=== PATIENT | male | born 1990 | race Caucasian/White ===

== ENCOUNTER 2018-03-27 14:23 | Inpatient (IN) | payer OTHER ==
[2018-03-27 16:18] VITALS: BMI 27.4
--- NOTE | 2018-03-27 19:01 | HP ---
COWS - Scale Resting Pulse: 0= [place] 80 or Below Sweatin= Chills/Flushing Restless Observation: 1= Difficult to Sit Still Pupil Size: 0= Normal to Room Light Bone or Joint Aches: 1= Mild Discomfort Runny Nose/ Eye Tearin= Runny Nose/Eyes GI Upset > 30mins: 3= Vomiting/Diarrhea Tremor Observation: 1= Tremor [place], Not Seen Yawning Observation: 2= >3x During Session Anxiety or Irritability: 2=Irritable/Anxious Goose Flesh Skin: 3=Piloerection COWS Score: 16 CIWA Score - CIWA Score Nausea/Vomitin-Int. Nausea w/Dry Heave Muscle Tremors: 2 Anxiety: 3 Agitation: 2 Paroxysmal Sweats: 2 Orientation: 0-Oriented Tacttile Disturbances: 1-Very Mild Itch/Numbness Auditory Disturbances: 0-None Visual Disturbances: 1-Very Mild Sensitivity Headache: 2-Mild CIWA-Ar Total Score: 17 Admission ROS [facility] - HPI Chief Complaint: alcohol, opioid, xanax withdrawal symptoms Allergies/Adverse Reactions: Allergies Allergy/AdvReac Type Severity Reaction Status Date / Time No Known Allergies Allergy Verified 03/27/18 16:39 History of Present Illness: 27 yo male with hx of nicotine, IV heroin , xanax, and alcohol dependence is here seeking detox. OD x 3 in last ten days. Last detox January 2016 at [facility]. Hx of bipolar and anxiety. Denies hx of seizures. Denies suicidal / homicidal ideation or hx of suicide attempts. Reports psych admission Sep 2014 for suicidal ideation. Longest period of sobriety. Exam Limitations: No Limitations - Ebola screening Have you traveled outside of the country in the last 21 days: No Have you had contact with anyone from an Ebola affected area: No Have you been sick,other than usual withdrawal symptoms: No Do you have a fever: No - Review of Systems Constitutional: Chills, Diaphoresis, Loss of Appetite, Changes in sleep, Unintentional Wgt. Loss EENT: reports: No Symptoms Reported Respiratory: reports: No Symptoms reported Cardiac: reports: Lightheadedness GI: reports: Nausea, Poor Appetite, Vomiting : reports: No Symptoms Reported Musculoskeletal: reports: Back Pain, Joint Pain Integumentary: reports: No Symptoms Reported Neuro: reports: Headache, Dizziness Endocrine: reports: Excessive Sweating, Increased Thirst Hematology: reports: No Symptoms Reported Psychiatric: reports: Orientated x3, Anxious, Depressed (father dx of wih endstage cancer) Other Systems: Reviewed and Negative Patient History - Patient Medical History Hx Anemia: No Hx Asthma: Yes (Pt is on MDI) Hx Chronic Obstructive Pulmonary Disease (COPD): No Hx Cancer: No Hx Cardiac Disorders: No Hx Congestive Heart Failure: No Hx Hypertension: Yes (not on meds at present.) Hx Hypercholesterolemia: No Hx Pacemaker: No HX Cerebrovascular Accident: No Hx Seizures: No Hx Dementia: No Hx Diabetes: No Hx Gastrointestinal Disorders: No Hx Liver Disease: No Hx Genitourinary Disorders: No Hx Sexually Transmitted Disorders: No Hx Renal Disease (ESRD): No Hx Thyroid Disease: No Hx Human Immunodeficiency Virus (HIV): No Hx Hepatitis C: No Hx Depression: Yes Hx Suicide Attempt: No Hx Bipolar Disorder: Yes (zyprexa, seroquel and trazodone ) Hx Schizophrenia: No - Patient Surgical History Past Surgical History: No Hx Neurologic Surgery: No Hx Cataract Extraction: No Hx Cardiac Surgery: No Hx Lung Surgery: No Hx Breast Surgery: No Hx Breast Biopsy: No Hx Abdominal Surgery: No Hx Appendectomy: No Hx Cholecystectomy: No Hx Genitourinary Surgery: No Hx Section: No Hx Orthopedic Surgery: No Anesthesia Reaction: No - PPD History Previous Implant?: Yes Documented Results: Negative w/proof Date: 04/30/15 Results: 0MM PPD to be Administered?: Yes - Smoking Cessation Smoking history: Current every day smoker Have you smoked in the past 12 months: Yes Aproximately how many cigarettes per day: 10 Hx Chewing Tobacco Use: No Initiated information on smoking cessation: Yes 'Breaking Loose' booklet given: 03/27/18 - Substance & Tx. History Hx Alcohol Use: Yes Hx Substance Use: Yes Substance Use Type: Alcohol, Heroin, Tranquilizers - Substances Abused Alcohol Route: Oral Frequency: Daily Amount used: BEER- 1 SIX PACK Age of first use: 17 Date of Last Use: 03/26/18 Heroin Route: Inhalation Frequency: Daily Amount used: 10 BAGS Age of first use: 17 Date of Last Use: 03/26/18 Alprazolam (Xanax) Route: Oral Frequency: Daily Amount used: 5-10mg Age of first use: 17 Date of Last Use: 03/27/18 Family Disease History - Family Disease History Family Disease History: [place]: Father (alive, prostate ), Other: Mother (alive and well) Admission Physical Exam [facility] - Vital Signs Vital Signs: Vital Signs - 24 hr 03/27/18 16:15 Temperature 97.8 F Pulse Rate 66 Respiratory 16 Rate Blood Pressure 128/68 - Physical General Appearance: Yes: Disheveled, Moderate Distress, Sweating, Anxious HEENTM: Yes: EOMI, Hearing grossly Normal, Normal ENT Inspection, Normocephalic , Normal Voice, CATIE, Pharynx Normal, Tm's normal Respiratory: Yes: Chest Non-Tender, Lungs Clear, Normal Breath Sounds, No Respiratory Distress, No Accessory Muscle Use Neck: Yes: Within Normal Limits Breast: Yes: Breast Exam Deferred Cardiology: Yes: Regular Rhythm, Regular Rate Abdominal: Yes: Normal Bowel Sounds, Non Tender, Flat Genitourinary: Yes: Within Normal Limits Back: Yes: Normal Inspection Musculoskeletal: Yes: full range of Motion, Gait Steady, Pelvis Stable, Back pain Neurological: Yes: dray driver II-XII NML intact, Fully Oriented, Alert, Motor Strength 5/5, Normal Response, Depressed Affect Integumentary: Yes: Normal Color, Warm, Diaphoresis, Track Maria (right forearm , diffrent healing stages, no infection) Lymphatic: Yes: Within Normal Limits - Diagnostic (1) Psychiatric disorder Current Visit: Yes Status: Acute (2) Alcohol dependence with uncomplicated withdrawal Current Visit: Yes Status: Chronic (3) Asthma Current Visit: Yes Status: Chronic Qualifiers: Asthma severity: mild Asthma persistence: intermittent Asthma complication type: uncomplicated Qualified Code(s): J45.20 - Mild intermittent asthma, uncomplicated (4) Cocaine dependence Current Visit: Yes Status: Chronic Qualifiers: Substance use status: uncomplicated Qualified Code(s): F14.20 - Cocaine dependence, uncomplicated (5) Opioid dependence with withdrawal Current Visit: Yes Status: Chronic (6) Uncomplicated sedative, hypnotic or anxiolytic withdrawal Current Visit: Yes Status: Chronic Cleared for Admission [facility] - Detox or Rehab [facility] Level of Care: Medically Managed Detox Regimen/Protocol: Methadone/Valium [facility] Breath Alcohol Content Breath Alcohol Content: 0 Urine Drug Screen - Results Drug Screen Negative: No Urine Drug Screen Results: OPI-Opiates, BZO-Benzodiazepines
[2018-03-27] MEDS ORDERED: MAGNESIUM HYDROX 2400MG/30ML ORAL SUSPENSION 30 ML CUP PO PRN (19:04)
[2018-03-27] MEDS ORDERED: ACETAMINOPHEN 325 MG TABLET (FP) PO PRN (19:04)
[2018-03-27] MEDS ORDERED: guaiFENesin/D-METHORPHAN HB 10 ML UNIT-DOSE CUPS PO PRN (19:04)
[2018-03-27] MEDS ORDERED: MENTHOL/PHENOL 1 EACH UD MM PRN (19:04)
[2018-03-27] MEDS ORDERED: MAGNESIUM CITRATE 300 ML BOTTLE PO PRN (19:04)
[2018-03-27] MEDS ORDERED: NICOTINE POLACRILEX 2 MG GUM BC PRN (19:04)
[2018-03-27] MEDS ORDERED: MAG HYDROX/AL HYDROX/SIMETH 30 ML UNIT-DOSE CUP PO PRN (19:04)
[2018-03-27] MEDS ORDERED: hydrOXYzine PAMOATE 50 MG CAPSULE (FP) PO PRN (19:04)
[2018-03-27] MEDS ORDERED: IBUPROFEN 400 MG TABLET (FP) PO PRN (19:04)
[2018-03-27] MEDS ORDERED: P-EPHED 60MG/TRIPROLIDI 2.5MG TABLET PO PRN (19:04)
[2018-03-27] MEDS ORDERED: LOPERAMIDE HCL 2 MG CAPSULE PO PRN (19:04)
[2018-03-27] MEDS ORDERED: diazePAM 5 MG TABLET PO ONE (19:30)
[2018-03-27] MEDS ORDERED: METHADONE HCL 10 MG TABLET (FOR DETOX USE ONLY) PO ONE ×2 (19:30→23:00)
[2018-03-27] MEDS ORDERED: MELATONIN 5 MG TABLETS PO PRN (22:00)
[2018-03-27] MEDS: THIAMINE HCL 100 MG TABLET (FP) PO SCH (22:36)
[2018-03-27] MEDS: diazePAM 5 MG TABLET PO SCH (23:05)
[2018-03-27 23:54] LABS: URINE APPEARANCE SLCLOUDY; URINE BILIRUBIN NEGATIVE (<2.0 mg/dL); URINE COLOR DKYELLOW; URINE GLUCOSE (UA) NEGATIVE (NEGATIVE); URINE KETONE NEGATIVE (NEGATIVE); URINE LEUK ESTERASE NEGATIVE (NEGATIVE); URINE NITRITE NEGATIVE (NEGATIVE); URINE PROTEIN NEGATIVE (NEGATIVE); URINE UROBILINOGEN NEGATIVE mg/dL (0.2-1.0)
[2018-03-28] MEDS: diazePAM 5 MG TABLET PO SCH ×3 (06:35→22:16)
[2018-03-28 09:57] LABS: HEMATOCRIT 44.5 % (35.4-49); HEMOGLOBIN 14.6 GM/dL (11.7-16.9); MCH 26.4 pg (25.7-33.7); MCHC 32.8 g/dl (32.0-35.9); MEAN CELL VOLUME 80.5 fl (80-96); MEAN PLT VOLUME 9.6 fl (7.5-11.1); PLATELET COUNT 235 K/MM3 (134-434); RBC 5.52 M/mm3 (4.00-5.60); RDW 13.5 % (11.9-15.9); WHITE BLOOD COUNT 5.4 K/mm3 (4.0-10.0)
[2018-03-28] MEDS ORDERED: METHADONE HCL 10 MG TABLET (FOR DETOX USE ONLY) PO SCH (10:00)
[2018-03-28 10:08] LABS: CHLORIDE 105 mmol/L (98-107); POTASSIUM 5.1 mmol/L (3.5-5.1); SODIUM 142 mmol/L (136-145)
[2018-03-28 10:21] LABS: ALBUMIN 3.4 g/dl (3.4-5.0); ALK PHOS 54 U/L (45-117); ANION GAP 8 (8-16); BILIRUBIN,TOTAL 0.4 mg/dL (0.2-1.0); BLOOD UREA NITROGEN 8 mg/dL (7-18); CALCIUM 8.7 mg/dL (8.5-10.1); CO2 29 mmol/L (21-32); CREATININE 1.1 mg/dL (0.7-1.3); GLUCOSE,RANDOM 104 mg/dL (74-106); SGOT/AST 18 U/L (15-37); SGPT/ALT 27 U/L (12-78); TOT PROT 6.3 g/dl (6.4-8.2)
[2018-03-28] MEDS: PRENATAL VITAMINS W/ FOLIC ACID TABLET (FP) PO SCH (10:36)
[2018-03-28] MEDS: NICOTINE 14 MG/24 HOURS TOPICAL PATCH TD SCH (10:36)
[2018-03-28] MEDS: diazePAM 5 MG TABLET PO PRN ×2 (10:38→15:47)
--- NOTE | 2018-03-28 11:31 | PN ---
S CIWA - CIWA Score Nausea/Vomitin-No Nausea/No Vomiting Muscle Tremors: 4-Moderate,w/Arms Extend Anxiety: 4-Mod. Anxious/Guarded Agitation: 4-Moderately Restless Paroxysmal Sweats: 1-Minimal Palms Moist Orientation: 0-Oriented Tacttile Disturbances: 0-None Auditory Disturbances: 0-None Visual Disturbances: 0-None Headache: 0-None Present CIWA-Ar Total Score: 13 S COWS - Scale Resting Pulse: 0= [place] 80 or Below Sweatin= Chills/Flushing Restless Observation: 3= Extraneous Movement Pupil Size: 2= Moderately Dilated Bone or Joint Aches: 1= Mild Discomfort Runny Nose/ Eye Tearin= None GI Upset > 30mins: 0= None Tremor Observation of Outstretched Hands: 2= Slight Tremor Visible Yawning Observation: 1= 1-2x During Session Anxiety or Irritability: 2=Irritable/Anxious Goose Flesh Skin: 0=Smooth Skin COWS Score: 12 S Progress Note (SOAP) Subjective: ANXIETY,SWEATS/CHILLS,DECREASED APPETITE,FATIGUE. Objective: 03/28/18 11:36 Vital Signs 03/28/18 03/28/18 06:15 09:10 Temperature 97.4 F L 97.5 F L Pulse Rate 60 52 L Respiratory 16 18 Rate Blood Pressure 91/60 102/56 Laboratory Tests 03/27/18 03/28/18 03/28/18 10:53 07:00 07:00 WBC 5.4 RBC 5.52 Hgb 14.6 Hct 44.5 D MCV 80.5 MCH 26.4 MCHC 32.8 RDW 13.5 Plt Count 235 MPV 9.6 D Sodium Potassium Chloride Carbon Dioxide Anion Gap BUN Creatinine Creat Clearance w eGFR Random Glucose Calcium Total Bilirubin AST ALT Alkaline Phosphatase Total Protein Albumin Urine Color Dkyellow Urine Appearance Slcloudy Urine pH 5.0 Ur Specific [place] 1.024 Urine Protein Negative Urine Glucose (UA) Negative Urine Ketones Negative Urine Blood Negative Urine Nitrite Negative Urine Bilirubin Negative Urine Urobilinogen Negative Ur Leukocyte Esterase Negative RPR Titer HIV 1&2 Antibody Screen Negative HIV P24 Antigen Negative 03/28/18 03/28/18 07:00 07:00 WBC RBC Hgb Hct MCV MCH MCHC RDW Plt Count MPV Sodium 142 Potassium 5.1 D Chloride 105 Carbon Dioxide 29 Anion Gap 8 BUN 8 Creatinine 1.1 Creat Clearance w eGFR > 60 Random Glucose 104 Calcium 8.7 Total Bilirubin 0.4 AST 18 D ALT 27 Alkaline Phosphatase 54 Total Protein 6.3 L Albumin 3.4 Urine Color Urine Appearance Urine pH Ur Specific [place] Urine Protein Urine Glucose (UA) Urine Ketones Urine Blood Urine Nitrite Urine Bilirubin Urine Urobilinogen Ur Leukocyte Esterase RPR Titer Nonreactive HIV 1&2 Antibody Screen HIV P24 Antigen Assessment: 03/28/18 11:36 WITHDRAWAL SX Plan: CONTINUE DETOX INCREASE PO FLUIDS
[2018-03-28] MEDS ORDERED: ALBUTEROL SO4 8 GM HFA INHALER IH ONE (16:30)
[2018-03-28] MEDS ORDERED: ALBUTEROL SO4 8 GM HFA INHALER IH PRN (16:37)
--- NOTE | 2018-03-28 16:41 | PN ---
[facility] Progress Note Note: Received call from nurse to state patient states he has asthma and usually takes an inhaler when needed. Patient denies SOB or wheezing at this time. Vital Signs - 24 hr 03/27/18 03/28/18 03/28/18 21:31 00:30 03:30 Temperature 99.1 F Pulse Rate 67 Respiratory 18 18 18 Rate Blood Pressure 119/69 03/28/18 03/28/18 03/28/18 06:15 09:10 13:16 Temperature 97.4 F L 97.5 F L 98.3 F Pulse Rate 60 52 L 55 L Respiratory 16 18 18 Rate Blood Pressure 91/60 102/56 125/66 Will order albuterol MDI prn for wheeze or SOB/
--- NOTE | 2018-03-28 17:35 | CONSULT ---
[facility] Psychiatric Consult - Data Date of interview: 03/28/18 Admission source: [facility] Identifying data: Readmission to [facility] for this 27 y/o male from [place] ancestry seeking detox treatment on for heroin,alcohol and xanax dependence.Patient is single without dependents,domiciled and reportedly employed. Substance Abuse History: Confirmed by patient in this session.Smoking history: Current every day smoker. Have you smoked in the past 12 months: Yes. Aproximately how many cigarettes per day: 10. Hx Chewing Tobacco Use: No. Initiated information on smoking cessation: Yes. 'Breaking Loose' booklet given : 03/27/18. - Substance & Tx. History. Hx Alcohol Use: Yes. Hx Substance Use : Yes. Substance Use Type: Alcohol, Heroin, Tranquilizers. - Substances Abused. Alcohol. Route: Oral. Frequency: Daily. Amount used: BEER- 1 SIX PACK. Age of first use: 17. Date of Last Use: 03/26/18. Heroin. Route: Inhalation. Frequency: Daily. Amount used: 10 BAGS. Age of first use: 17. Date of Last Use: 03/26/18. Alprazolam (Xanax). Route: Oral. Frequency: Daily. Amount used: 5-10mg. Age of first use: 17. Date of Last Use: 03/27/18 Medical History: Hypertension and bronchial asthma. Psychiatric History: Patient endorses a history of two psychiatric hospitalization ([facility] + [facility]) in 2013 and 2014.Reportedly diagnosed with Bipolar Disorder.Patient states that he sees a psychiatrist in the community (program unnamed) for medication management.Prescribed wellbutrin XL 300 mg/day + seroquel + trazodone (doses not recalled).Last taken three days ago, as per self -report.History of one suicide attempt via overdose with drugs/medications in 2014. Physical/Sexual Abuse/Trauma History: Patient denies. Additional Comment: Urine Drug Screen Results: OPI-Opiates, BZO- Benzodiazepines.Noted. Mental Status Exam - Mental Status Exam Alert and Oriented to: Time, Place, Person Cognitive Function: Good Patient Appearance: Well Groomed Mood: Nervous, Withdrawn, Irritable Affect: Mood Congruent Patient Behavior: Passive, Fatigued, Cooperative (superficially cooperative) Voice Loudness: Normal Thought Process: Goal Oriented Thought Disorder: Not Present Hallucinations: Denies Suicidal Ideation: Denies Homicidal Ideation: Denies Insight/Judgement: Poor Sleep: Poorly, Difficulty falling asleep Appetite: Good Muscle strength/Tone: Normal Gait/Station: Normal Psychiatric Findings - Problem List ([place] 1, 2,3) (1) Opioid dependence with withdrawal Current Visit: Yes Status: Acute (2) Alcohol dependence with uncomplicated withdrawal Current Visit: Yes Status: Acute (3) Uncomplicated sedative, hypnotic or anxiolytic withdrawal Current Visit: Yes Status: Acute (4) Nicotine dependence Current Visit: Yes Status: Acute Qualifiers: Nicotine product type: cigarettes Substance use status: in withdrawal Qualified Code(s): F17.213 - Nicotine dependence, cigarettes, with withdrawal (5) Substance induced mood disorder Current Visit: Yes Status: Acute (6) Bipolar disorder Current Visit: Yes Status: Acute Comment: As per self-report. (7) Insomnia Current Visit: Yes Status: Acute - Initial Treatment Plan Initial Treatment Plan: Psychoeducation.Detoxification.Sleep hygiene.Medications : seroquel 100 mg po hs + wellbutrin XL 300 mg po daily ( patient's specific request).Side effects/benefits of both drugs are discussed with the patient.Consent (verbal) given.Observation.
[2018-03-28] MEDS: THIAMINE HCL 100 MG TABLET (FP) PO SCH (22:16)
[2018-03-28] MEDS: QUEtiapine FUMARATE 100 MG TABLET (FP) PO SCH (22:16)
[2018-03-29] MEDS: diazePAM 5 MG TABLET PO SCH ×2 (10:22→22:16)
[2018-03-29] MEDS: PRENATAL VITAMINS W/ FOLIC ACID TABLET (FP) PO SCH (10:22)
[2018-03-29] MEDS: METHADONE HCL 5 MG TABLET (FOR DETOX USE ONLY) PO SCH (10:23)
[2018-03-29] MEDS: NICOTINE 14 MG/24 HOURS TOPICAL PATCH TD SCH (10:24)
[2018-03-29] MEDS: diazePAM 5 MG TABLET PO PRN (16:40)
--- NOTE | 2018-03-29 16:47 | PN ---
[facility] CIWA - CIWA Score Nausea/Vomitin-No Nausea/No Vomiting Muscle Tremors: None Anxiety: 4-Mod. Anxious/Guarded Agitation: 4-Moderately Restless Paroxysmal Sweats: 3 Orientation: 0-Oriented Tacttile Disturbances: 1-Very Mild Itch/Numbness Auditory Disturbances: 0-None Visual Disturbances: 0-None Headache: 0-None Present CIWA-Ar Total Score: 12 S COWS - Scale Resting Pulse: 1= [place] 81-100 Sweatin= Chills/Flushing Restless Observation: 1= Difficult to Sit Still Pupil Size: 0= Normal to Room Light Bone or Joint Aches: 0= None Runny Nose/ Eye Tearin= Nasal Congestion GI Upset > 30mins: 0= None Tremor Observation of Outstretched Hands: 0= None Yawning Observation: 1= 1-2x During Session Anxiety or Irritability: 2=Irritable/Anxious Goose Flesh Skin: 3=Piloerection COWS Score: 10 S Progress Note (SOAP) Subjective: Sweating, Anxious. Objective: PATIENT A & O X 3, OBSERVED AMBULATING ON UNIT. NO ACUTE DISTRESS. 03/29/18 16:46 Vital Signs Temperature 97.2 F L 03/29/18 13:20 Pulse Rate 82 03/29/18 13:20 Respiratory Rate 16 03/29/18 13:20 Blood Pressure 126/78 03/29/18 13:20 O2 Sat by Pulse Oximetry (%) Laboratory Tests 03/27/18 03/28/18 03/28/18 10:53 07:00 07:00 WBC 5.4 RBC 5.52 Hgb 14.6 Hct 44.5 D MCV 80.5 MCH 26.4 MCHC 32.8 RDW 13.5 Plt Count 235 MPV 9.6 D Sodium Potassium Chloride Carbon Dioxide Anion Gap BUN Creatinine Creat Clearance w eGFR Random Glucose Calcium Total Bilirubin AST ALT Alkaline Phosphatase Total Protein Albumin Urine Color Dkyellow Urine Appearance Slcloudy Urine pH 5.0 Ur Specific [place] 1.024 Urine Protein Negative Urine Glucose (UA) Negative Urine Ketones Negative Urine Blood Negative Urine Nitrite Negative Urine Bilirubin Negative Urine Urobilinogen Negative Ur Leukocyte Esterase Negative RPR Titer HIV 1&2 Antibody Screen Negative HIV P24 Antigen Negative 03/28/18 03/28/18 07:00 07:00 WBC RBC Hgb Hct MCV MCH MCHC RDW Plt Count MPV Sodium 142 Potassium 5.1 D Chloride 105 Carbon Dioxide 29 Anion Gap 8 BUN 8 Creatinine 1.1 Creat Clearance w eGFR > 60 Random Glucose 104 Calcium 8.7 Total Bilirubin 0.4 AST 18 D ALT 27 Alkaline Phosphatase 54 Total Protein 6.3 L Albumin 3.4 Urine Color Urine Appearance Urine pH Ur Specific [place] Urine Protein Urine Glucose (UA) Urine Ketones Urine Blood Urine Nitrite Urine Bilirubin Urine Urobilinogen Ur Leukocyte Esterase RPR Titer Nonreactive HIV 1&2 Antibody Screen HIV P24 Antigen LABS NOTED. Assessment: 03/29/18 16:47 WITHDRAWAL SYMPTOMS. Plan: CONTINUE DETOX.
[2018-03-29] MEDS: QUEtiapine FUMARATE 100 MG TABLET (FP) PO SCH (22:16)
[2018-03-29] MEDS: THIAMINE HCL 100 MG TABLET (FP) PO SCH (22:16)
[2018-03-30 06:17] VITALS: BP 101/51; PULSE 50; TEMP 98.2
[2018-03-30] MEDS: diazePAM 5 MG TABLET PO PRN (06:20)
[2018-03-30] MEDS: METHADONE HCL 5 MG TABLET (FOR DETOX USE ONLY) PO SCH (11:34)
[2018-03-30] MEDS: NICOTINE 14 MG/24 HOURS TOPICAL PATCH TD SCH (11:35)
[2018-03-30] MEDS: diazePAM 5 MG TABLET PO SCH (11:35)
[2018-03-30] MEDS: PRENATAL VITAMINS W/ FOLIC ACID TABLET (FP) PO SCH (11:35)
--- NOTE | 2018-03-30 13:23 | PN ---
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 Objective: 03/30/18 13:19 Vital Signs - 24 hr 03/29/18 03/29/18 03/29/18 13:20 18:06 22:11 Temperature 97.2 F L 96.4 F L 97.7 F Pulse Rate 82 81 62 Respiratory 16 19 16 Rate Blood Pressure 126/78 105/64 122/75 03/30/18 03/30/18 03/30/18 00:30 03:30 06:16 Temperature 98.2 F Pulse Rate 50 L Respiratory 18 18 18 Rate Blood Pressure 101/51 Laboratory Tests 03/27/18 03/28/18 03/28/18 10:53 07:00 07:00 WBC 5.4 RBC 5.52 Hgb 14.6 Hct 44.5 D MCV 80.5 MCH 26.4 MCHC 32.8 RDW 13.5 Plt Count 235 MPV 9.6 D Sodium Potassium Chloride Carbon Dioxide Anion Gap BUN Creatinine Creat Clearance w eGFR Random Glucose Calcium Total Bilirubin AST ALT Alkaline Phosphatase Total Protein Albumin Urine Color Dkyellow Urine Appearance Slcloudy Urine pH 5.0 Ur Specific [place] 1.024 Urine Protein Negative Urine Glucose (UA) Negative Urine Ketones Negative Urine Blood Negative Urine Nitrite Negative Urine Bilirubin Negative Urine Urobilinogen Negative Ur Leukocyte Esterase Negative RPR Titer HIV 1&2 Antibody Screen Negative HIV P24 Antigen Negative 03/28/18 03/28/18 07:00 07:00 WBC RBC Hgb Hct MCV MCH MCHC RDW Plt Count MPV Sodium 142 Potassium 5.1 D Chloride 105 Carbon Dioxide 29 Anion Gap 8 BUN 8 Creatinine 1.1 Creat Clearance w eGFR > 60 Random Glucose 104 Calcium 8.7 Total Bilirubin 0.4 AST 18 D ALT 27 Alkaline Phosphatase 54 Total Protein 6.3 L Albumin 3.4 Urine Color Urine Appearance Urine pH Ur Specific [place] Urine Protein Urine Glucose (UA) Urine Ketones Urine Blood Urine Nitrite Urine Bilirubin Urine Urobilinogen Ur Leukocyte Esterase RPR Titer Nonreactive HIV 1&2 Antibody Screen HIV P24 Antigen VS stable labs WNL pt amublatory Assessment: 03/30/18 13:20 pt stable- did not complete detox- feeling fine today, pt states not in withdrawal Plan: d/c today
--- NOTE | 2018-03-30 13:51 | DS ---
[facility] Detox Discharge Summary Admission Date: 03/27/18 Discharge Date: 03/30/18 - History Present History: Alcohol Dependence, Opioid Dependence, Sedative Dependence - Physical Exam Results Vital Signs: Vital Signs Temperature 98.2 F 03/30/18 06:16 Pulse Rate 50 L 03/30/18 06:16 Respiratory Rate 18 03/30/18 06:16 Blood Pressure 101/51 03/30/18 06:16 O2 Sat by Pulse Oximetry (%) Pertinent Admission Physical Exam Findings: 27 yo male with hx of nicotine, IV heroin , xanax, and alcohol dependence is here seeking detox. OD x 3 in last ten days. Last detox January 2016 at [facility]. Hx of bipolar and anxiety better after detox. - Treatment Hospital Course: Detox Protocol Followed, Detoxed Safely, Responded well - Medication Discharge Medications: Ambulatory Orders Quetiapine Fumarate [Seroquel] 200 mg PO DAILY #30 tablet 06/09/15 traZODone HCL [Desyrel -] 200 mg PO HS #30 tablet 06/09/15 Bupropion HCl [Wellbutrin Xl] 300 mg PO DAILY 03/27/18 Escitalopram Oxalate [Lexapro -] 20 mg PO DAILY 03/27/18 - AMA Did Patient Leave Against Medical Advice: Yes
[2018-03-31] MEDS ORDERED: METHADONE HCL 10 MG TABLET (FOR DETOX USE ONLY) PO SCH (10:00)
[2018-03-31] MEDS ORDERED: diazePAM 5 MG TABLET PO SCH (10:00)
--- NOTE | 2018-03-31 11:11 | EKG ---
Test Reason : Blood Pressure : / mmHG Vent. Rate : 049 BPM Atrial Rate : 049 BPM P-R Int : 170 ms QRS Dur : 098 ms QT Int : 416 ms P-R-T Axes : 041 065 010 degrees QTc Int : 375 ms SINUS BRADYCARDIA WITH SINUS ARRHYTHMIA VOLTAGE CRITERIA FOR LEFT VENTRICULAR HYPERTROPHY ABNORMAL ECG WHEN COMPARED WITH ECG OF 27-APR-2015 20:49, NO SIGNIFICANT CHANGE WAS FOUND Confirmed by IVONNE HITCHCOCK MD ([id number]) on 03/31/2018 11:11:30 AM Referred By: Confirmed By:IVONNE HITCHCOCK MD
[2018-04-01] MEDS ORDERED: METHADONE HCL 5 MG TABLET (FOR DETOX USE ONLY) PO SCH (06:00)
== END 2018-03-30 09:05 | disposition left against medical advice (07) | DRG 770 ==
LOC: YASAS 14:23 → Y3N 17:12
PROVIDERS: ADMIT Surgery; ATTEND Surgery
PROC: HZ2ZZZZ Detoxification Services for Substance Abuse Treatment (ICD-10-PCS; principal; 2018-03-27)
DX: F11.23 Opioid dependence with withdrawal (principal); F13.230 Sedative, hypnotic or anxiolytic dependence with withdrawal, uncomplicated; F10.230 Alcohol dependence with withdrawal, uncomplicated; F17.213 Nicotine dependence, cigarettes, with withdrawal; F19.24 Other psychoactive substance dependence with psychoactive substance-induced mood disorder; F31.9 Bipolar disorder, unspecified; F99 Mental disorder, not otherwise specified; G47.00 Insomnia, unspecified; I10 Essential (primary) hypertension; J45.909 Unspecified asthma, uncomplicated; Z91.5 Personal history of self-harm
CPT/HCPCS: 36415; 80053; 81003; 85027; 86593; 87389; 93005; 93010

== ENCOUNTER 2019-01-30 14:06 | Inpatient (IN) | payer OTHER ==
[2019-01-30 15:08] VITALS: BMI 25.5
--- NOTE | 2019-01-30 17:47 | HP ---
"COWS - Scale Resting Pulse: 0= [place] 80 or Below Sweatin=Flushed/Facial Moisture Restless Observation: 3= Extraneous Movement Pupil Size: 2= Moderately Dilated (Pupils = 5 mm) Bone or Joint Aches: 1= Mild Discomfort Runny Nose/ Eye Tearin= Nasal Congestion GI Upset > 30mins: 2= Nausea/Diarrhea Tremor Observation: 4= Gross Tremor/Twitching Yawning Observation: 0= None Anxiety or Irritability: 2=Irritable/Anxious Goose Flesh Skin: 0=Smooth Skin COWS Score: 17 CIWA Score Nausea/Vomitin-No Nausea/No Vomiting Muscle Tremors: 4-Moderate,w/Arms Extend Anxiety: 2 Agitation: 4-Moderately Restless Paroxysmal Sweats: 3 (Increased facial moisture) Orientation: 0-Oriented Tacttile Disturbances: 0-None Auditory Disturbances: 0-None Visual Disturbances: 0-None Headache: 2-Mild CIWA-Ar Total Score: 15 - Admission Criteria OAS Guidelines: Admission for Medically Managed Detox: Requires at least one of the followin. CIWA greater than 12 2. Seizures within the past 24 hours 3. Delirium tremens within the past 24 hours 4. Hallucinations within the past 24 hours 5. Acute intervention needed for co occurring medical disorder 6. Acute intervention needed for co occurring psychiatric disorder 7. Severe withdrawal that cannot be handled at a lower level of care (continued vomiting, continued diarrhea, abnormal vital signs) requiring intravenous medication and/or fluids 8. Patient presents the following: CIWA greater than 12 Admission Criteria Met: Admission criteria met Admission ROS [facility] Chief Complaint: I'm withdrawing from Alcohol, Heroin and benzos Allergies/Adverse Reactions: Allergies Allergy/AdvReac Type Severity Reaction Status Date / Time No Known Allergies Allergy Verified 01/30/19 14:57 History of Present Illness: State here for heroin, benzo, and alcohol detox. Heroin use since age 17. Current use of 6 bundles x 1 month. Uses IV x 10 years. Denies sharing needles or works. States tried detoxing self w/ methadone 3-4 days ago. Xanax and Klonipin use since age 17. Non-prescribed and uses approx 5-10 mg daily. Alcohol use since age 17. Curent use 4- 116 oz beers daily. Nicotine use since age 17. Marijuana use rare - lat use about 3 weeks prior to admission. Denies cocaine use. Denies seizures or blackouts. Last overdose 1 month. (Saved by Mother w/ Narcan) Narcan kit at home. States no treatment since last admission. (Sobriety x 2 months while incarcerated). Consistent use x past 5 months. PMHx: Denies significant PMH. Asthma as a child. No exacerbation in years. Abn EKG at last [facility] visit (03/2018) MHHx: Depression and insomnia. On Wellbutrin and Trazodone. Last saw Provider 2 months ago. Denies thoughts of harming self or others. Patient Name: Julio Pope Date: 1990 Address: [address] [place] [address] Sex: Male Rx Written Rx Dispensed Drug Quantity Days Supply Prescriber Name 04/17/2018 04/17/2018 suboxone 2 mg-0.5 mg sl film 9 6 Blair Peña NP Search Terms: Julio Pope, 1990 Search Date: 01/30/2019 05:46:33 PM States Searched: [place], [place], [place], [place], [place], [place], [place], [place] The Drug Utilization Report below displays the controlled substance prescriptions, if any, that were dispensed in the indicated state(s). The information displayed on this report is compiled from requests submitted to other states' PMPs, and accurately reflects the information as returned by them. Blank grossman indicate data not provided by other state. This report was requested by: Malinda Canela | Reference #: [id number] x Exam Limitations: No Limitations - Ebola screening Have you traveled outside of the country in the last 21 days: No (N) Have you had contact with anyone from an Ebola affected area: No Have you been sick,other than usual withdrawal symptoms: No (Denies recent exposure to measles.) Do you have a fever: No - Review of Systems Constitutional: Chills, Diaphoresis, Changes in sleep (Difficulty falling and staying asleep) EENT: reports: Nose Congestion Respiratory: reports: No Symptoms reported Cardiac: reports: No Symptoms Reported GI: reports: Nausea : reports: No Symptoms Reported Musculoskeletal: reports: Back Pain (r/t withdrawal), Joint Pain, Other (leg pain r/t withdrawal) Neuro: reports: Headache (Mild - temporal area), Tremors Endocrine: reports: Intolerance to Cold Hematology: reports: No Symptoms Reported Psychiatric: reports: Judgement Intact, Orientated x3, Agitated, Anxious, Depressed (Denies thoughts of harming self or others.) Patient History - Patient Medical History Hx Anemia: No Hx Asthma: Yes (Pt is on MDI) Hx Chronic Obstructive Pulmonary Disease (COPD): No Hx Cancer: No Hx Cardiac Disorders: No Hx Congestive Heart Failure: No Hx Hypertension: Yes (not on meds at present.) Hx Hypercholesterolemia: No Hx Pacemaker: No HX Cerebrovascular Accident: No Hx Seizures: No Hx Dementia: No Hx Diabetes: No Hx Gastrointestinal Disorders: No Hx Liver Disease: No Hx Genitourinary Disorders: No Hx Sexually Transmitted Disorders: No Hx Renal Disease (ESRD): No Hx Thyroid Disease: No Hx Human Immunodeficiency Virus (HIV): No Hx Hepatitis C: No Hx Depression: Yes Hx Suicide Attempt: No Hx Bipolar Disorder: Yes (zyprexa, seroquel and trazodone ) Hx Schizophrenia: No - Patient Surgical History Past Surgical History: No Hx Neurologic Surgery: No Hx Cataract Extraction: No Hx Cardiac Surgery: No Hx Lung Surgery: No Hx Breast Surgery: No Hx Breast Biopsy: No Hx Abdominal Surgery: No Hx Appendectomy: No Hx Cholecystectomy: No Hx Genitourinary Surgery: No Hx Section: No Hx Orthopedic Surgery: No Anesthesia Reaction: No - PPD History Previous Implant?: Yes Documented Results: Negative w/proof Implanted On Prior [facility] Admission?: Yes Date: 03/29/18 Results: 0MM PPD to be Administered?: No - Smoking Cessation Smoking history: Current every day smoker Have you smoked in the past 12 months: Yes Aproximately how many cigarettes per day: 20 Hx Chewing Tobacco Use: No Initiated information on smoking cessation: Yes 'Breaking Loose' booklet given: 01/30/19 - Substance & Tx. History Hx Alcohol Use: Yes Hx Substance Use: Yes Substance Use Type: Alcohol, Heroin, Marijuana, Opiates, Tranquilizers (Xanax and klonopin) Hx Substance Use Treatment: Yes (detox, rehab, incarceration) - Substances abused Heroin Substance route: Injection Frequency: Daily Amount used: 50-70 bags Age of first use: 17 Date of last use: 01/30/19 Alprazolam (Xanax) Substance route: Oral Frequency: Daily Amount used: 5-10mg Age of first use: 17 Date of last use: 01/30/19 Other Other (specify): klonopin Substance route: Oral Frequency: Daily Amount used: 5-10mg Age of first use: 17 Date of last use: 01/30/19 Alcohol Substance route: Oral Frequency: 3-6 times per week Amount used: 4 loco (16 ounces) Age of first use: 17 Date of last use: 01/30/19 Family Disease History - Family Disease History Family Disease History: CA: Father (alive, prostate ), Other: Mother (alive and well) Admission Physical Exam S - Vital Signs Vital Signs: Vital Signs - 24 hr 01/30/19 01/30/19 15:00 15:55 Temperature 97.1 F L 97.1 F L Pulse Rate 75 75 Respiratory 16 16 Rate Blood Pressure 109/75 109/75 - Physical General Appearance: Yes: Nourished, Moderate Distress, Tremorous, Irritable, Sweating (Increased facial moisture), Anxious HEENTM: Yes: EOMI (Jerking movement of eyes upon lateral gaze), Hearing grossly Normal, Normocephalic, Normal Voice, CATIE (Pupils = 5 mm), Pharynx Normal Respiratory: Yes: Lungs Clear, Normal Breath Sounds, No Respiratory Distress Neck: Yes: No masses,lesions,Nodules, Supple Breast: Yes: Breast Exam Deferred Cardiology: Yes: Regular Rhythm, Regular Rate, S1, S2 Abdominal: Yes: Non Tender, Flat, Soft, Increased Bowel Sounds Genitourinary: Yes: Within Normal Limits Back: Yes: Normal Inspection Musculoskeletal: Yes: full range of Motion, Gait Steady Extremities: Yes: Normal Capillary Refill, Normal Range of Motion, Non-Tender, Tremors (Gross tremors of hands when arms elevated) 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 Some ecchymosis. No increased warmth or erythema.) Lymphatic: Yes: Within Normal Limits - Diagnostic (1) Nystagmus Current Visit: Yes Status: Acute (2) Alcohol dependence with uncomplicated withdrawal Current Visit: Yes Status: Acute (3) Nicotine dependence Current Visit: Yes Status: Chronic Qualifiers: Nicotine product type: cigarettes Substance use status: in withdrawal Qualified Code(s): F17.213 - Nicotine dependence, cigarettes, with withdrawal (4) Opioid dependence with withdrawal Current Visit: Yes Status: Acute (5) Uncomplicated sedative, hypnotic or anxiolytic withdrawal Current Visit: Yes Status: Acute Cleared for Admission S - Detox or Rehab [facility] Level of Care: Medically Managed Detox Regimen/Protocol: Methadone/Valium Claeared for Rehab Admission: No Breathalyzer - Breathalyzer Breathalyzer: 0 Urine Drug Screen - Test Device Lot number: [id number] Expiration date: 10/30/20 - Control Is test valid?: Yes - Results Drug screen NEGATIVE: No Urine drug screen results: THC-Marijuana, MET-Methamphetamine, FEN-Fentanyl, MOP -Opiates, OXY-Oxycodone, MTD-Methadone Inpatient Rehab Admission - Rehab Decision to Admit Inpatient rehab admission?: No"
[2019-01-30] MEDS ORDERED: BISMUTH SUBSALICYLATE 524 MG/30 ML UD PO PRN (18:37)
[2019-01-30] MEDS ORDERED: PROCHLORPERAZINE MALEATE 5 MG TABLET PO PRN (18:37)
[2019-01-30] MEDS ORDERED: MAGNESIUM HYDROX 2400MG/30ML ORAL SUSPENSION 30 ML CUP PO PRN (18:37)
[2019-01-30] MEDS ORDERED: NICOTINE POLACRILEX 2 MG GUM BUC PRN (18:37)
[2019-01-30] MEDS ORDERED: cloNIDine HCL 0.1 MG TABLET PO PRN (18:37)
[2019-01-30] MEDS ORDERED: IBUPROFEN 400 MG TABLET (FP) PO PRN (18:37)
[2019-01-30] MEDS ORDERED: MENTHOL/PHENOL 1 EACH UD MM PRN (18:37)
[2019-01-30] MEDS ORDERED: MAGNESIUM CITRATE 300 ML BOTTLE PO PRN (18:37)
[2019-01-30] MEDS ORDERED: MAG HYDROX/AL HYDROX/SIMETH 30 ML UNIT-DOSE CUP PO PRN (18:37)
[2019-01-30] MEDS ORDERED: METHADONE HCL 10 MG TABLET (FOR DETOX USE ONLY) PO ONE ×2 (18:37→23:00)
[2019-01-30] MEDS ORDERED: ACETAMINOPHEN 325 MG TABLET (FP) PO PRN (18:37)
[2019-01-30] MEDS: METHOCARBAMOL 500 MG TABLET PO PRN (19:43)
[2019-01-30] MEDS ORDERED: diazePAM 5 MG TABLET PO ONE (20:00)
[2019-01-30] MEDS: THIAMINE HCL 100 MG TABLET (FP) PO SCH (22:12)
[2019-01-30] MEDS: diazePAM 5 MG TABLET PO SCH (22:13)
[2019-01-30] MEDS: ACETAMINOPHEN 325 MG TABLET (FP) PO PRN (22:16)
[2019-01-30] MEDS ORDERED: traZODone HCL 50 MG TABLET (FP) PO ONE (23:00)
[2019-01-31] MEDS: diazePAM 5 MG TABLET PO SCH ×3 (05:18→22:17)
--- NOTE | 2019-01-31 09:15 | CONSULT ---
[facility] Psychiatric Consult - Data Date of interview: 01/31/19 Admission source: [facility] Identifying data: Patient is a 28 year old single male, without children, unemployed, and is residing with his parents. This is one of multiple admissions for patient. Patient admitted to for alcohol, marijuana, and opiate dependence. Substance Abuse History: Smoking Cessation. Smoking history: Current every day smoker. Have you smoked in the past 12 months: Yes. Aproximately how many cigarettes per day: 20. Hx Chewing Tobacco Use: No. Initiated information on smoking cessation: Yes. 'Breaking Loose' booklet given: 01/30/19. - Substance & Tx. History. Hx Alcohol Use: Yes. Hx Substance Use: Yes. Substance Use Type : Alcohol, Heroin, Marijuana, Opiates, Tranquilizers (Xanax and klonopin). Hx Substance Use Treatment: Yes (detox, rehab, incarceration). - Substances abused. Heroin. Substance route: Injection. Frequency: Daily. Amount used : 50-70 bags. Age of first use: 17. Date of last use: 01/30/19. Alprazolam (Xanax). Substance route: Oral. Frequency: Daily. Amount used: 5- 10mg. Age of first use: 17. Date of last use: 01/30/19. Other. Other ( specify): klonopin. Substance route: Oral. Frequency: Daily. Amount used: 5- 10mg. Age of first use: 17. Date of last use: 01/30/19. Alcohol. Substance route: Oral. Frequency: 3-6 times per week. Amount used: 4 loco (16 ounces). Age of first use: 17. Date of last use: 01/30/19 Psychiatric History: Patient denies h/o psychiatric hospitalizations despite previous entries by Dr. Vlilasenor and Dr. Lindsey stating that patient has had two psychiatric hospitalizations. Patient was receiving outpatient psychiatric care at [facility] outpatient program but reports discontinuing treatment two months ago because he was "lazy". States he was prescribed wellbutrin 300mg Xl + trazodone 200mg HS but has been noncompliant with medications for several weeks. Self reports a diagnosis of Bipolar disorder. At present patient reports difficulty sleeping. Physical/Sexual Abuse/Trauma History: denies. Mental Status Exam - Mental Status Exam Alert and Oriented to: Time, Place, Person Cognitive Function: Good Patient Appearance: Well Groomed Mood: Withdrawn Affect: Mood Congruent Patient Behavior: Fatigued Speech Pattern: Appropriate Voice Loudness: Moderately Soft/Quiet Thought Process: Goal Oriented Thought Disorder: Not Present Hallucinations: Denies Suicidal Ideation: Denies Homicidal Ideation: Denies Insight/Judgement: Poor Sleep: Poorly Appetite: Fair Muscle strength/Tone: Normal Gait/Station: Normal Psychiatric Findings - Problem List ([place] 1, 2,3) (1) Alcohol dependence with uncomplicated withdrawal Current Visit: Yes Status: Acute (2) Opioid dependence with withdrawal Current Visit: Yes Status: Acute (3) Uncomplicated sedative, hypnotic or anxiolytic withdrawal Current Visit: Yes Status: Acute (4) Substance-induced sleep disorder Current Visit: Yes Status: Acute (5) Substance induced mood disorder Current Visit: Yes Status: Acute (6) Bipolar disorder Current Visit: No Status: Suspected Comment: As per self-report. - Initial Treatment Plan Initial Treatment Plan: Psychoeducation provided. Detoxification in progress. Will order Trazodone 100mg HS. Benefits and side effects discussed. Verbal consent given.
[2019-01-31] MEDS ORDERED: METHADONE HCL 10 MG TABLET (FOR DETOX USE ONLY) PO ONE (10:00)
[2019-01-31] MEDS: ACETAMINOPHEN 325 MG TABLET (FP) PO PRN ×2 (10:01→17:48)
[2019-01-31] MEDS: PRENATAL VITAMINS W/ FOLIC ACID TABLET (FP) PO SCH (10:02)
[2019-01-31] MEDS: NICOTINE 21 MG/24 HOURS TOPICAL PATCH TD SCH (10:02)
[2019-01-31 10:41] LABS: HEMATOCRIT 41.3 % (35.4-49); MCH 24.8 pg (25.7-33.7); MCHC 31.5 g/dl (32.0-35.9); MEAN CELL VOLUME 78.7 fl (80-96); PLATELET COUNT 213 K/MM3 (134-434); RBC 5.25 M/mm3 (4.00-5.60); RDW 14.3 % (11.9-15.9); WHITE BLOOD COUNT 4.7 K/mm3 (4.0-10.0)
[2019-01-31 11:44] LABS: ALBUMIN 3.2 g/dl (3.4-5.0); BILIRUBIN,TOTAL 0.4 mg/dL (0.2-1); CALCIUM 9.4 mg/dL (8.5-10.1); POTASSIUM 4.7 mmol/L (3.5-5.1); TOT PROT 6.6 g/dl (6.4-8.2)
[2019-01-31] MEDS: METHOCARBAMOL 500 MG TABLET PO PRN ×2 (13:24→22:18)
--- NOTE | 2019-01-31 16:33 | PN ---
S CIWA - CIWA Score Nausea/Vomitin Muscle Tremors: 3 Anxiety: 3 Agitation: 0-Normal Activity Paroxysmal Sweats: 3 Orientation: 0-Oriented Tacttile Disturbances: 0-None Auditory Disturbances: 2-Mild Harshness/Frighten Visual Disturbances: 3-Moderate Sensitivity Headache: 0-None Present CIWA-Ar Total Score: 16 BHS COWS - Scale Resting Pulse: 0= [place] 80 or Below Sweatin= Chills/Flushing Restless Observation: 0= Sits Still Pupil Size: 0= Normal to Room Light Bone or Joint Aches: 2= Severe Diffuse Aches Runny Nose/ Eye Tearin= None GI Upset > 30mins: 2= Nausea/Diarrhea Tremor Observation of Outstretched Hands: 2= Slight Tremor Visible Yawning Observation: 1= 1-2x During Session Anxiety or Irritability: 2=Irritable/Anxious Goose Flesh Skin: 3=Piloerection COWS Score: 13 BHS Progress Note (SOAP) Subjective: Sweating, Tremors, Anxious, Nausea, Fatigue, Body Aches. Objective: PATIENT A & O X 3. IN NO ACUTE DISTRESS. 01/31/19 16:35 Vital Signs Temperature 97.0 F L 01/31/19 13:51 Pulse Rate 70 01/31/19 13:51 Respiratory Rate 18 01/31/19 13:51 Blood Pressure 88/54 L 01/31/19 13:51 O2 Sat by Pulse Oximetry (%) Laboratory Tests 01/31/19 01/31/19 07:35 07:35 WBC 4.7 RBC 5.25 Hgb 13.0 Hct 41.3 MCV 78.7 L MCH 24.8 L MCHC 31.5 L RDW 14.3 Plt Count 213 MPV 9.0 Sodium 141 Potassium 4.7 Chloride 105 Carbon Dioxide 28 Anion Gap 8 BUN 11 Creatinine 1.0 Est GFR (CKD-EPI)AfAm 119.02 Est GFR (CKD-EPI)NonAf 102.69 Random Glucose 110 H Calcium 9.4 Total Bilirubin 0.4 AST 11 L ALT 24 Alkaline Phosphatase 54 Total Protein 6.6 Albumin 3.2 L LABS NOTED. RPR RESULT PENDING. 01/31/19 16:36 Assessment: 01/31/19 16:36 WITHDRAWAL SYMPTOMS. Plan: CONTINUE DETOX. INCREASE DAILY PO FLUID / WATER INTAKE.
[2019-01-31] MEDS: traZODone HCL 100 MG TABLET (FP) PO SCH (22:17)
[2019-01-31] MEDS: THIAMINE HCL 100 MG TABLET (FP) PO SCH (22:17)
[2019-02-01] MEDS ORDERED: METHADONE HCL 10 MG TABLET (FOR DETOX USE ONLY) ONE (09:10)
[2019-02-01] MEDS ORDERED: METHADONE HCL 5 MG TABLET (FOR DETOX USE ONLY) ONE (09:11)
[2019-02-01] MEDS ORDERED: METHADONE HCL 10 MG TABLET (FOR DETOX USE ONLY) PO ONE (10:00)
[2019-02-01] MEDS ORDERED: METHADONE (DETOX) 20 MG, METHADONE (DETOX) 5 MG PO ONE (10:00)
[2019-02-01] MEDS: NICOTINE 21 MG/24 HOURS TOPICAL PATCH TD SCH (10:20)
[2019-02-01] MEDS: diazePAM 5 MG TABLET PO SCH ×2 (10:21→22:24)
[2019-02-01] MEDS: PRENATAL VITAMINS W/ FOLIC ACID TABLET (FP) PO SCH (10:21)
[2019-02-01] MEDS: ACETAMINOPHEN 325 MG TABLET (FP) PO PRN ×2 (10:22→22:25)
--- NOTE | 2019-02-01 15:12 | PN ---
[facility] CIWA - CIWA Score Nausea/Vomitin-Mild Nausea/No Vomiting Muscle Tremors: 3 Anxiety: 1-Mildly Anxious Agitation: 0-Normal Activity Paroxysmal Sweats: 3 Orientation: 0-Oriented Tacttile Disturbances: 0-None Auditory Disturbances: 0-None Visual Disturbances: 0-None Headache: 0-None Present CIWA-Ar Total Score: 8 S COWS - Scale Resting Pulse: 1= MN 81-100 Sweatin=Flushed/Facial Moisture Restless Observation: 0= Sits Still Pupil Size: 0= Normal to Room Light Bone or Joint Aches: 0= None Runny Nose/ Eye Tearin= None GI Upset > 30mins: 1= Stomach Cramp Tremor Observation of Outstretched Hands: 2= Slight Tremor Visible Yawning Observation: 0= None Anxiety or Irritability: 1=Feels Anxious/Irritable Goose Flesh Skin: 0=Smooth Skin COWS Score: 7 [facility] Progress Note (SOAP) Subjective: sweats anxious Objective: 02/01/19 15:10 A & O x 3, ambulating steadily on unit, not in acute distress Vital Signs Temperature 98.1 F 02/01/19 13:22 Pulse Rate 86 02/01/19 13:22 Respiratory Rate 20 02/01/19 13:22 Blood Pressure 128/70 02/01/19 13:22 O2 Sat by Pulse Oximetry (%) Assessment: 02/01/19 15:11 withdrawal sx Plan: continue detox continue increase hydration
--- NOTE | 2019-02-01 15:41 | EKG ---
Test Reason : Blood Pressure : / mmHG Vent. Rate : 052 BPM Atrial Rate : 052 BPM P-R Int : 192 ms QRS Dur : 102 ms QT Int : 446 ms P-R-T Axes : 052 067 030 degrees QTc Int : 414 ms SINUS BRADYCARDIA WITH SINUS ARRHYTHMIA VOLTAGE CRITERIA FOR LEFT VENTRICULAR HYPERTROPHY EARLY REPOLARIZATION ABNORMAL ECG WHEN COMPARED WITH ECG OF 27-MAR-2018 20:03, NO SIGNIFICANT CHANGE WAS FOUND Confirmed by AZAM CALVO MD ([id number]) on 02/01/2019 3:40:50 PM Referred By: Confirmed By:AZAM CALVO MD
[2019-02-01] MEDS: diazePAM 5 MG TABLET PO PRN (16:40)
[2019-02-01] MEDS: traZODone HCL 100 MG TABLET (FP) PO SCH (22:24)
[2019-02-01] MEDS: THIAMINE HCL 100 MG TABLET (FP) PO SCH (22:24)
[2019-02-01] MEDS: MELATONIN 5 MG TABLETS PO PRN (22:26)
[2019-02-02] MEDS: ACETAMINOPHEN 325 MG TABLET (FP) PO PRN ×3 (05:18→17:05)
[2019-02-02] MEDS: METHOCARBAMOL 500 MG TABLET PO PRN ×2 (05:19→22:23)
[2019-02-02] MEDS ORDERED: diazePAM 5 MG TABLET PO SCH (06:00)
[2019-02-02] MEDS ORDERED: METHADONE HCL 10 MG TABLET (FOR DETOX USE ONLY) PO ONE (10:00)
[2019-02-02] MEDS: PRENATAL VITAMINS W/ FOLIC ACID TABLET (FP) PO SCH (10:31)
[2019-02-02] MEDS: NICOTINE 21 MG/24 HOURS TOPICAL PATCH TD SCH (10:31)
[2019-02-02] MEDS: diazePAM 5 MG TABLET PO PRN ×2 (10:35→17:04)
--- NOTE | 2019-02-02 13:46 | PN ---
[facility] CIWA - CIWA Score Nausea/Vomitin-Mild Nausea/No Vomiting Muscle Tremors: 1-None Visible, but [place] Anxiety: 1-Mildly Anxious Agitation: 1-Slight > Activity Paroxysmal Sweats: No Perspiration Orientation: 0-Oriented Tacttile Disturbances: 0-None Auditory Disturbances: 0-None Visual Disturbances: 0-None Headache: 0-None Present CIWA-Ar Total Score: 4 S COWS - Scale Resting Pulse: 0= [place] 80 or Below Sweatin= Chills/Flushing Restless Observation: 0= Sits Still Pupil Size: 0= Normal to Room Light Bone or Joint Aches: 1= Mild Discomfort Runny Nose/ Eye Tearin= None GI Upset > 30mins: 0= None Tremor Observation of Outstretched Hands: 1= Tremor [place], Not Seen Yawning Observation: 0= None Anxiety or Irritability: 1=Feels Anxious/Irritable Goose Flesh Skin: 0=Smooth Skin COWS Score: 4 S Progress Note (SOAP) Subjective: patient is doing well with the detox regimen alert well-rested more energy discuss aftercare with staff Objective: 02/02/19 13:45 Vital Signs Temperature 97.1 F L 02/02/19 13:36 Pulse Rate 66 02/02/19 13:36 Respiratory Rate 18 02/02/19 13:36 Blood Pressure 105/72 02/02/19 13:36 O2 Sat by Pulse Oximetry (%) Laboratory Last Values WBC 4.7 K/mm3 (4.0-10.0) 01/31/19 07:35 RBC 5.25 M/mm3 (4.00-5.60) 01/31/19 07:35 Hgb 13.0 GM/dL (11.7-16.9) 01/31/19 07:35 Hct 41.3 % (35.4-49) 01/31/19 07:35 MCV 78.7 fl (80-96) L 01/31/19 07:35 MCH 24.8 pg (25.7-33.7) L 01/31/19 07:35 MCHC 31.5 g/dl (32.0-35.9) L 01/31/19 07:35 RDW 14.3 % (11.9-15.9) 01/31/19 07:35 Plt Count 213 K/MM3 (134-434) 01/31/19 07:35 MPV 9.0 fl (7.5-11.1) 01/31/19 07:35 Sodium 141 mmol/L (136-145) 01/31/19 07:35 Potassium 4.7 mmol/L (3.5-5.1) 01/31/19 07:35 Chloride 105 mmol/L (98-107) 01/31/19 07:35 Carbon Dioxide 28 mmol/L (21-32) 01/31/19 07:35 Anion Gap 8 MMOL/L (8-16) 01/31/19 07:35 BUN 11 mg/dL (7-18) 01/31/19 07:35 Creatinine 1.0 mg/dL (0.55-1.3) 01/31/19 07:35 Est GFR (CKD-EPI)AfAm 119.02 01/31/19 07:35 Est GFR (CKD-EPI)NonAf 102.69 01/31/19 07:35 Random Glucose 110 mg/dL (74-106) H 01/31/19 07:35 Calcium 9.4 mg/dL (8.5-10.1) 01/31/19 07:35 Total Bilirubin 0.4 mg/dL (0.2-1) 01/31/19 07:35 AST 11 U/L (15-37) L 01/31/19 07:35 ALT 24 U/L (13-61) 01/31/19 07:35 Alkaline Phosphatase 54 U/L (45-117) 01/31/19 07:35 Total Protein 6.6 g/dl (6.4-8.2) 01/31/19 07:35 Albumin 3.2 g/dl (3.4-5.0) L 01/31/19 07:35 RPR Titer Nonreactive (NONREACTIVE) 01/31/19 07:35 lab noted Assessment: 02/02/19 13:45 withdrawal sx Plan: continue detox
[2019-02-02] MEDS: MELATONIN 5 MG TABLETS PO PRN (22:23)
[2019-02-02] MEDS: traZODone HCL 100 MG TABLET (FP) PO SCH (22:23)
[2019-02-02] MEDS: THIAMINE HCL 100 MG TABLET (FP) PO SCH (22:23)
[2019-02-03] MEDS ORDERED: METHADONE HCL 10 MG TABLET (FOR DETOX USE ONLY) ONE (09:32)
[2019-02-03] MEDS ORDERED: METHADONE HCL 5 MG TABLET (FOR DETOX USE ONLY) ONE (09:32)
[2019-02-03] MEDS ORDERED: METHADONE (DETOX) 10 MG, METHADONE (DETOX) 5 MG PO ONE (10:00)
[2019-02-03] MEDS: METHOCARBAMOL 500 MG TABLET PO PRN (10:21)
[2019-02-03] MEDS: NICOTINE 21 MG/24 HOURS TOPICAL PATCH TD SCH (10:22)
[2019-02-03] MEDS: PRENATAL VITAMINS W/ FOLIC ACID TABLET (FP) PO SCH (10:22)
--- NOTE | 2019-02-03 12:30 | PN ---
S CIWA - CIWA Score Nausea/Vomitin Muscle Tremors: 2 Anxiety: 1-Mildly Anxious Agitation: 2 Paroxysmal Sweats: 1-Minimal Palms Moist Orientation: 0-Oriented Tacttile Disturbances: 1-Very Mild Itch/Numbness Auditory Disturbances: 1-Very Mild Visual Disturbances: 0-None Headache: 2-Mild CIWA-Ar Total Score: 12 BHS COWS - Scale Resting Pulse: 0= [place] 80 or Below Sweatin= Chills/Flushing Restless Observation: 1= Difficult to Sit Still Pupil Size: 1= Pupils >than Normal Bone or Joint Aches: 2= Severe Diffuse Aches Runny Nose/ Eye Tearin= Nasal Congestion GI Upset > 30mins: 2= Nausea/Diarrhea Tremor Observation of Outstretched Hands: 2= Slight Tremor Visible Yawning Observation: 1= 1-2x During Session Anxiety or Irritability: 1=Feels Anxious/Irritable Goose Flesh Skin: 0=Smooth Skin COWS Score: 12 S Progress Note (SOAP) Subjective: alert,irritable,anxious,interrupted sleep,pain in the body and back Objective: 02/03/19 12:31 Vital Signs Temperature 98.2 F 02/03/19 10:13 Pulse Rate 57 L 02/03/19 10:13 Respiratory Rate 18 02/03/19 10:13 Blood Pressure 100/69 02/03/19 10:13 O2 Sat by Pulse Oximetry (%) Assessment: 02/03/19 12:32 withdrawal symptom Plan: continue detox
[2019-02-03 13:01] VITALS: BP 103/64; PULSE 78; TEMP 98.6
--- NOTE | 2019-02-03 15:32 | PN ---
S Progress Note Note: patient is stable for discharge,follow up with after care program as arrangement
--- NOTE | 2019-02-03 15:37 | DS ---
[facility] Detox Discharge Summary Admission Date: 01/30/19 Discharge Date: 02/03/19 - History Present History: Alcohol Dependence, Opioid Dependence, Sedative Dependence Additional Comments: patient is stable for discharge today,follow up with after care program as arrangement - Physical Exam Results Vital Signs: Vital Signs Temperature 98.6 F 02/03/19 13:00 Pulse Rate 78 02/03/19 13:00 Respiratory Rate 18 02/03/19 13:00 Blood Pressure 103/64 02/03/19 13:00 O2 Sat by Pulse Oximetry (%) Pertinent Admission Physical Exam Findings: withdrawal signs and symptom Vital Signs Temperature 98.6 F 02/03/19 13:00 Pulse Rate 78 02/03/19 13:00 Respiratory Rate 18 02/03/19 13:00 Blood Pressure 103/64 02/03/19 13:00 O2 Sat by Pulse Oximetry (%) Laboratory Last Values WBC 4.7 K/mm3 (4.0-10.0) 01/31/19 07:35 RBC 5.25 M/mm3 (4.00-5.60) 01/31/19 07:35 Hgb 13.0 GM/dL (11.7-16.9) 01/31/19 07:35 Hct 41.3 % (35.4-49) 01/31/19 07:35 MCV 78.7 fl (80-96) L 01/31/19 07:35 MCH 24.8 pg (25.7-33.7) L 01/31/19 07:35 MCHC 31.5 g/dl (32.0-35.9) L 01/31/19 07:35 RDW 14.3 % (11.9-15.9) 01/31/19 07:35 Plt Count 213 K/MM3 (134-434) 01/31/19 07:35 MPV 9.0 fl (7.5-11.1) 01/31/19 07:35 Sodium 141 mmol/L (136-145) 01/31/19 07:35 Potassium 4.7 mmol/L (3.5-5.1) 01/31/19 07:35 Chloride 105 mmol/L (98-107) 01/31/19 07:35 Carbon Dioxide 28 mmol/L (21-32) 01/31/19 07:35 Anion Gap 8 MMOL/L (8-16) 01/31/19 07:35 BUN 11 mg/dL (7-18) 01/31/19 07:35 Creatinine 1.0 mg/dL (0.55-1.3) 01/31/19 07:35 Est GFR (CKD-EPI)AfAm 119.02 01/31/19 07:35 Est GFR (CKD-EPI)NonAf 102.69 01/31/19 07:35 Random Glucose 110 mg/dL (74-106) H 01/31/19 07:35 Calcium 9.4 mg/dL (8.5-10.1) 01/31/19 07:35 Total Bilirubin 0.4 mg/dL (0.2-1) 01/31/19 07:35 AST 11 U/L (15-37) L 01/31/19 07:35 ALT 24 U/L (13-61) 01/31/19 07:35 Alkaline Phosphatase 54 U/L (45-117) 01/31/19 07:35 Total Protein 6.6 g/dl (6.4-8.2) 01/31/19 07:35 Albumin 3.2 g/dl (3.4-5.0) L 01/31/19 07:35 RPR Titer Nonreactive (NONREACTIVE) 01/31/19 07:35 - Treatment Hospital Course: Detox Protocol Followed, Detoxed Safely, Responded well, Discharged Condition Good Patient has Accepted a Rehab Referral to: declined - Medication Discharge Medications: Ambulatory Orders Bupropion HCl [Wellbutrin Xl] 300 mg PO DAILY 03/27/18 traZODone HCL [Desyrel -] 200 mg PO HS 01/30/19 - AMA Did Patient Leave Against Medical Advice: No
[2019-02-04] MEDS ORDERED: METHADONE HCL 10 MG TABLET (FOR DETOX USE ONLY) PO ONE (10:00)
[2019-02-05] MEDS ORDERED: METHADONE HCL 5 MG TABLET (FOR DETOX USE ONLY) PO ONE (06:00)
== END 2019-02-03 15:45 | disposition home or self-care (01) | DRG 773 ==
LOC: YASAS 14:06 → Y3N 18:58
PROVIDERS: ADMIT Surgery; ATTEND Surgery
PROC: HZ2ZZZZ Detoxification Services for Substance Abuse Treatment (ICD-10-PCS; principal; 2019-01-30)
DX: F11.23 Opioid dependence with withdrawal (principal); F10.230 Alcohol dependence with withdrawal, uncomplicated; F13.230 Sedative, hypnotic or anxiolytic dependence with withdrawal, uncomplicated; F19.282 Other psychoactive substance dependence with psychoactive substance-induced sleep disorder; F19.24 Other psychoactive substance dependence with psychoactive substance-induced mood disorder; F31.9 Bipolar disorder, unspecified; G47.00 Insomnia, unspecified; I10 Essential (primary) hypertension; J45.909 Unspecified asthma, uncomplicated; H55.00 Unspecified nystagmus; R94.31 Abnormal electrocardiogram [ECG] [EKG]
CPT/HCPCS: 36415; 80053; 85027; 86593; 93005; 93010; J0735

== ENCOUNTER 2019-08-03 15:04 | Inpatient (IN) | payer OTHER ==
[2019-08-03 17:24] VITALS: BMI 26.9
--- NOTE | 2019-08-03 19:42 | HP ---
COWS - Scale Resting Pulse: 0= [place] 80 or Below Sweatin= Chills/Flushing Restless Observation: 1= Difficult to Sit Still Pupil Size: 1= Pupils >than Normal Bone or Joint Aches: 2= Severe Diffuse Aches Runny Nose/ Eye Tearin= None GI Upset > 30mins: 2= Nausea/Diarrhea Tremor Observation: 0= None Yawning Observation: 0= None Anxiety or Irritability: 2=Irritable/Anxious Goose Flesh Skin: 0=Smooth Skin COWS Score: 9 CIWA Score - Admission Criteria OASAS Guidelines: Admission for Medically Managed Detox: Requires at least one of the followin. CIWA greater than 12 2. Seizures within the past 24 hours 3. Delirium tremens within the past 24 hours 4. Hallucinations within the past 24 hours 5. Acute intervention needed for co occurring medical disorder 6. Acute intervention needed for co occurring psychiatric disorder 7. Severe withdrawal that cannot be handled at a lower level of care (continued vomiting, continued diarrhea, abnormal vital signs) requiring intravenous medication and/or fluids 8. Admitting History and Physical - Admission History of Present Illness: Pt is a 29 yo M with depression on lexapro and insomnia on trazadone presenting for detox from heroin, and xanax detox. Has been in an outpt program March 2019. Goes back to use when he is bored and has money. Started using drugs for recreation and cousin introduced him to heroin, he injects. Wants outpt naltrzxone, Day top. Pt noted to have suboxone last prescribed 07/29, per pt he does not use the suboxone because per pt it doesn't help him. Pt reports that he picks up the suboxone to use in case he he has withdrawal. Pt signed consent to PCP since pt is getting suboxone heroin-opiates in urine, fen Uses iv, shares needles, reuses needles Last use last night 2am, 6 bags of heroin Has been using everyday Never had an abscess Neg Hep C and HIV (done October 2017) Heroin use since age 17 yrs Relapsed 3 months ago, last here December 2018 Overdosed in December 2018 before last detox Has narcan at home, Mother used it on him in past Not in a methadone program has only been in detox here Has symptoms of withdrawal in 12-18 hrs after use xanax- Last use 3 days ago 4mg Uses orally or sniffs sometimes Uses 10mg daily for past 3 months [address] since age 17 Last Klonipin use 1 month ago, used interchangeable with xanax . 20mg per day Quit -alcohol 2 years ago Nicotine use since age 17. 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 History Source: Patient, Medical Record Limitations to Obtaining History: No Limitations - Past Medical History Pulmonary: Yes: Asthma (Uses symbicort daily, wheezes) Psych: Yes: Addictions, Depression - Past Surgical History Additional Past Surgical History: R Hand fracture -2017 - Smoking History Smoking history: Current every day smoker Have you smoked in the past 12 months: Yes Aproximately how many cigarettes per day: 20 - Alcohol/Substance Use Hx Alcohol Use: Yes History of Substance Use: reports: Heroin, Tranquilizers - Social History Usual Living Arrangement: Yes: With Parent Do you think of yourself as: Straight/Heterosexual ADL: Independent History of Recent Travel: No Admission [facility] Allergies/Adverse Reactions: Allergies Allergy/AdvReac Type Severity Reaction Status Date / Time No Known Allergies Allergy Verified 08/03/19 17:17 - Ebola screening Have you traveled outside of the country in the last 21 days: No Have you had contact with anyone from an Ebola affected area: No - Review of Systems Constitutional: Chills EENT: reports: No Symptoms Reported Respiratory: reports: Shortness of Breath (asthmatic) Cardiac: reports: No Symptoms Reported GI: reports: Nausea, Abdominal cramping : reports: No Symptoms Reported Musculoskeletal: reports: Back Pain Integumentary: reports: No Symptoms Reported Neuro: reports: No Symptoms reported Endocrine: reports: No Symptoms Reported Patient History - Patient Medical History Hx Anemia: No Hx Asthma: Yes (Pt is on MDI) Hx Chronic Obstructive Pulmonary Disease (COPD): No Hx Cancer: No Hx Cardiac Disorders: No Hx Congestive Heart Failure: No Hx Hypertension: Yes (not on meds at present.) Hx Hypercholesterolemia: No Hx Pacemaker: No HX Cerebrovascular Accident: No Hx Seizures: No Hx Dementia: No Hx Diabetes: No Hx Gastrointestinal Disorders: No Hx Liver Disease: No Hx Genitourinary Disorders: No Hx Sexually Transmitted Disorders: No Hx Renal Disease (ESRD): No Hx Thyroid Disease: No Hx Human Immunodeficiency Virus (HIV): No Hx Hepatitis C: No Hx Depression: Yes Hx Suicide Attempt: No Hx Bipolar Disorder: Yes (zyprexa, seroquel and trazodone ) Hx Schizophrenia: No - Patient Surgical History Past Surgical History: No Hx Neurologic Surgery: No Hx Cataract Extraction: No Hx Cardiac Surgery: No Hx Lung Surgery: No Hx Breast Surgery: No Hx Breast Biopsy: No Hx Abdominal Surgery: No Hx Appendectomy: No Hx Cholecystectomy: No Hx Genitourinary Surgery: No Hx Section: No Hx Orthopedic Surgery: No Anesthesia Reaction: No - PPD History Date: 03/29/18 Results: 0MM - Smoking Cessation Smoking history: Current every day smoker Have you smoked in the past 12 months: Yes Aproximately how many cigarettes per day: 20 Hx Chewing Tobacco Use: No Initiated information on smoking cessation: Yes 'Breaking Loose' booklet given: 08/03/19 - Substances abused Heroin Substance route: Injection Frequency: Daily Amount used: 20 bags Age of first use: 17 Date of last use: 08/02/19 Alprazolam (Xanax) Substance route: Oral Frequency: Daily Amount used: 10mg Age of first use: 17 Date of last use: 08/02/19 Other Other (specify): klonopin Substance route: Oral Frequency: No use in 30 days Amount used: 5-10mg Age of first use: 17 Date of last use: 06/01/19 Alcohol Substance route: Oral Frequency: 3-6 times per week Amount used: 4 loco (16 ounces) Age of first use: 17 Date of last use: 01/30/19 Admission Physical Exam BHS - Vital Signs Vital Signs: Vital Signs - 24 hr 08/03/19 17:19 Temperature 97.5 F L Pulse Rate 63 Respiratory 18 Rate Blood Pressure 127/66 - Physical General Appearance: Yes: Anxious HEENTM: Yes: EOMI Respiratory: Yes: Chest Non-Tender, Lungs Clear, Normal Breath Sounds Neck: Yes: Within Normal Limits Breast: Yes: Breast Exam Deferred Cardiology: Yes: Regular Rhythm, Regular Rate, S1, S2 Abdominal: Yes: Non Tender, Soft Genitourinary: Yes: Within Normal Limits Back: Yes: Within Normal Limits Musculoskeletal: Yes: Other (Track ashtyn) Extremities: Yes: Other (L arm track barrera in elbow, arm and posterior aspect of L arm) Neurological: Yes: speech professor II-XII NML intact, Motor Strength 5/5, Other (drowsy) Integumentary: Yes: Track Barrera (L arm) Cleared for Admission [facility] - Detox or Rehab [facility] Level of Care: Medically Managed Detox Regimen/Protocol: Methadone (Methadone detox) Breathalyzer - Breathalyzer Breathalyzer: 0 Urine Drug Screen - Test Device Lot number: [id number] Expiration date: 03/31/21 - Control Is test valid?: Yes - Results Drug screen NEGATIVE: No Urine drug screen results: FEN-Fentanyl, MOP-Opiates Inpatient Rehab Admission - Rehab Decision to Admit Inpatient rehab admission?: No
--- NOTE | 2019-08-03 20:01 | PN ---
Teaching Attending Note Name of Resident: Shala Chaves ATTENDING PHYSICIAN STATEMENT I saw and evaluated the patient. I reviewed the resident's note and discussed the case with the resident. I agree with the resident's findings and plan as documented. SUBJECTIVE: 29 yo with long h/o of OUD, recently here for detox about 6 months ago. Relapsed. Pt is getting monthly prescriptions for Bupe- last pickle maker on 07/29. Utox- pos for Fen/Morphine, neg for Bupe OBJECTIVE: Vital Signs - 24 hr 08/03/19 17:19 Temperature 97.5 F L Pulse Rate 63 Respiratory 18 Rate Blood Pressure 127/66 alert oriented ASSESSMENT AND PLAN: OUD- pt will sign that he is here for heroin detox- so that doctor is aware that pt is here will admit for OUD treatment with methadone
[2019-08-03] MEDS ORDERED: NICOTINE POLACRILEX 2 MG GUM BUC PRN (20:09)
[2019-08-03] MEDS ORDERED: MAGNESIUM HYDROX 2400MG/30ML ORAL SUSPENSION 30 ML CUP PO PRN (20:09)
[2019-08-03] MEDS ORDERED: BISMUTH SUBSALICYLATE 524 MG/30 ML UD PO PRN (20:09)
[2019-08-03] MEDS ORDERED: MAG HYDROX/AL HYDROX/SIMETH 30 ML UNIT-DOSE CUP PO PRN (20:09)
[2019-08-03] MEDS ORDERED: MAGNESIUM CITRATE 300 ML BOTTLE PO PRN (20:09)
[2019-08-03] MEDS ORDERED: IBUPROFEN 400 MG TABLET (FP) PO PRN (20:09)
[2019-08-03] MEDS ORDERED: ACETAMINOPHEN 325 MG TABLET (FP) PO PRN ×2 (20:09)
[2019-08-03] MEDS ORDERED: MENTHOL/PHENOL 1 EACH UD MM PRN (20:09)
[2019-08-03] MEDS ORDERED: ALBUTEROL SO4 0.083% IH SOL 2.5 MG/3 ML VIAL.NEB. NEB PRN (20:16)
[2019-08-03] MEDS ORDERED: METHADONE HCL 10 MG TABLET (FOR DETOX USE ONLY) PO ONE (20:30)
[2019-08-03] MEDS: THIAMINE HCL 100 MG TABLET (FP) PO SCH (21:16)
[2019-08-03] MEDS ORDERED: MELATONIN 5 MG TABLETS PO PRN (22:00)
--- NOTE | 2019-08-04 08:13 | CONSULT ---
[facility] Psychiatric Consult - Data Date of interview: 08/04/19 Admission source: Self-referred Identifying data: Mr Pope is a 29 years old single male, unemployed , living with his parents seeking detox treatment for opioid and benzodiazepine Substance Abuse History: Reports history of alcohol, heroin, xanax and klonopin use. Refer to addiction counselor's summary for further information Medical History: Significant for hypertension, bronchial asthma, history of benzodiazepine related seizure and orthosurgery for fracture right hand in 2017. Smokes cigarettes 1 ppd Psychiatric History: Patient is well known to this facility from previous admissions. He is not too cooperative and reluctant to provide information. Reportedly he was diagnosed with Bipolar Disorder at age 14 and has had 2 previous psychiatric hospitalizations in 2013 and 2015 respectively at [facility] and [facility]. Reports that he is not currently receiving psychiatric care but gets Trazadone 200 mg/hs from a doctor at his program. He used to be on Wellbutrin XL 300 mg/day and Zyprexa, Seroquel in the past. Reports one previous suicide attempt via overdose with drugs/medications in 2014. At present, denies experiencing psychotic, manic symptoms, S/H ideations. However, reports feeling depressed and sleeping poorly. Requests to continue Trazadone 200 mg/hs Mental Status Exam - Mental Status Exam Alert and Oriented to: Time, Place, Person Cognitive Function: Fair Patient Appearance: Well Groomed Mood: Depressed Affect: Appropriate Speech Pattern: Clear Voice Loudness: Normal Thought Process: Intact, Goal Oriented Thought Disorder: Not Present Hallucinations: Denies Suicidal Ideation: Denies Homicidal Ideation: Denies Insight/Judgement: Poor Sleep: Poorly Appetite: Poor Muscle strength/Tone: Normal Gait/Station: Normal Psychiatric Findings - Problem List (Eure 1, 2,3) (1) Bipolar disorder Current Visit: No Status: Chronic Comment: As per self-report. (2) Substance induced mood disorder Current Visit: Yes Status: Acute (3) Substance-induced sleep disorder Current Visit: Yes Status: Acute (4) Uncomplicated opioid dependence Current Visit: Yes Status: Acute (5) Uncomplicated sedative, hypnotic or anxiolytic withdrawal Current Visit: No Status: Acute (6) Nicotine dependence Current Visit: No Status: Chronic Qualifiers: Nicotine product type: cigarettes Substance use status: in withdrawal Qualified Code(s): F17.213 - Nicotine dependence, cigarettes, with withdrawal (7) Asthma Current Visit: No Status: Chronic Qualifiers: Asthma severity: mild Asthma persistence: unspecified Asthma complication type: uncomplicated Qualified Code(s): J45.909 - Unspecified asthma, uncomplicated (8) HTN (hypertension) Current Visit: No Status: Chronic (9) Drug-induced seizure Current Visit: Yes Status: Resolved - Initial Treatment Plan Initial Treatment Plan: 1) Continue Trazadone 200 mg po HS. 2) Continue inpatient detoxification
[2019-08-04] MEDS ORDERED: METHADONE HCL 5 MG TABLET (FOR DETOX USE ONLY) ONE (08:40)
[2019-08-04] MEDS ORDERED: METHADONE HCL 10 MG TABLET (FOR DETOX USE ONLY) ONE (08:40)
[2019-08-04] MEDS ORDERED: METHADONE (DETOX) 20 MG, METHADONE (DETOX) 5 MG PO ONE (10:00)
[2019-08-04 10:21] LABS: ALBUMIN 3.3 g/dl (3.4-5.0); BILIRUBIN,TOTAL 0.5 mg/dL (0.2-1); CALCIUM 9.1 mg/dL (8.5-10.1); CREATININE 0.8 mg/dL (0.55-1.3); TOT PROT 6.2 g/dl (6.4-8.2)
[2019-08-04 10:22] LABS: HEMATOCRIT 41.9 % (35.4-49); HEMOGLOBIN 13.7 GM/dL (11.7-16.9); MCH 26.2 pg (25.7-33.7); MCHC 32.8 g/dl (32.0-35.9); MEAN CELL VOLUME 79.9 fl (80-96); MEAN PLT VOLUME 9.1 fl (7.5-11.1); PLATELET COUNT 206 K/MM3 (134-434); RBC 5.24 M/mm3 (4.00-5.60); RDW 15.1 % (11.9-15.9); WHITE BLOOD COUNT 6.1 K/mm3 (4.0-10.0)
[2019-08-04] MEDS: NICOTINE 21 MG/24 HOURS TOPICAL PATCH TD SCH (10:26)
[2019-08-04] MEDS: PRENATAL VITAMINS W/ FOLIC ACID TABLET (FP) PO SCH (10:26)
--- NOTE | 2019-08-04 11:54 | PN ---
BHS COWS - Scale Resting Pulse: 0= [place] 80 or Below Sweatin= Chills/Flushing Restless Observation: 1= Difficult to Sit Still Pupil Size: 0= Normal to Room Light Bone or Joint Aches: 1= Mild Discomfort Runny Nose/ Eye Tearin= Nasal Congestion GI Upset > 30mins: 0= None Tremor Observation of Outstretched Hands: 1= Tremor [place], Not Seen Yawning Observation: 1= 1-2x During Session Anxiety or Irritability: 2=Irritable/Anxious Goose Flesh Skin: 0=Smooth Skin COWS Score: 8 BHS Progress Note (SOAP) Subjective: sweats shakes body aches irritable Objective: 08/04/19 11:58 Vital Signs Temperature 99.1 F 08/04/19 09:24 Pulse Rate 58 L 08/04/19 09:24 Respiratory Rate 16 08/04/19 09:24 Blood Pressure 115/60 08/04/19 09:24 O2 Sat by Pulse Oximetry (%) Laboratory Tests 08/04/19 08/04/19 08:00 08:00 WBC 6.1 RBC 5.24 Hgb 13.7 Hct 41.9 MCV 79.9 L MCH 26.2 MCHC 32.8 RDW 15.1 Plt Count 206 MPV 9.1 Sodium 140 Potassium 5.0 Chloride 107 Carbon Dioxide 29 Anion Gap 5 L BUN 12.0 Creatinine 0.8 Est GFR (CKD-EPI)AfAm 140.90 Est GFR (CKD-EPI)NonAf 121.57 Random Glucose 87 Calcium 9.1 Total Bilirubin 0.5 AST 19 ALT 28 Alkaline Phosphatase 58 Total Protein 6.2 L Albumin 3.3 L aaox3 ambulating no acute distress Assessment: 08/04/19 11:58 withdrawal sx Plan: continue detox increase fluids
[2019-08-04] MEDS: cloNIDine HCL 0.1 MG TABLET PO PRN ×2 (14:22→19:48)
[2019-08-04] MEDS: METHOCARBAMOL 500 MG TABLET PO PRN ×2 (14:22→19:48)
[2019-08-04 14:41] LABS: RPR NONREACTIVE (NONREACTIVE)
[2019-08-04] MEDS: hydrOXYzine PAMOATE 25 MG CAPSULE (FP) PO PRN (17:20)
[2019-08-04] MEDS: THIAMINE HCL 100 MG TABLET (FP) PO SCH (22:06)
[2019-08-05] MEDS: cloNIDine HCL 0.1 MG TABLET PO PRN ×3 (00:55→12:59)
[2019-08-05] MEDS: hydrOXYzine PAMOATE 25 MG CAPSULE (FP) PO PRN ×2 (01:52→10:04)
[2019-08-05] MEDS: METHOCARBAMOL 500 MG TABLET PO PRN ×2 (01:53→10:04)
[2019-08-05] MEDS ORDERED: METHADONE HCL 10 MG TABLET (FOR DETOX USE ONLY) PO ONE (10:00)
[2019-08-05] MEDS: NICOTINE 21 MG/24 HOURS TOPICAL PATCH TD SCH (10:02)
[2019-08-05] MEDS: PRENATAL VITAMINS W/ FOLIC ACID TABLET (FP) PO SCH (10:02)
[2019-08-05] MEDS ORDERED: LIDOCAINE 5% TOPICAL PATCH TP ONE (10:11)
[2019-08-05] MEDS ORDERED: diazePAM 5 MG TABLET PO PRN (10:12)
--- NOTE | 2019-08-05 10:17 | PN ---
BHS COWS - Scale Resting Pulse: 1= [place] 81-100 Sweatin= Chills/Flushing Restless Observation: 1= Difficult to Sit Still Pupil Size: 0= Normal to Room Light Bone or Joint Aches: 2= Severe Diffuse Aches Runny Nose/ Eye Tearin= Nasal Congestion GI Upset > 30mins: 0= None Tremor Observation of Outstretched Hands: 1= Tremor [place], Not Seen Yawning Observation: 0= None Anxiety or Irritability: 2=Irritable/Anxious Goose Flesh Skin: 0=Smooth Skin COWS Score: 9 BHS Progress Note (SOAP) Subjective: low back pain sweats irritable anxiety restless interrupted sleep Objective: 08/05/19 10:14 Vital Signs Temperature 98.1 F 08/05/19 09:20 Pulse Rate 84 08/05/19 09:20 Respiratory Rate 18 08/05/19 09:20 Blood Pressure 124/70 08/05/19 09:20 O2 Sat by Pulse Oximetry (%) 100 08/04/19 15:09 Laboratory Tests 08/04/19 08/04/19 08/04/19 08:00 08:00 08:00 WBC 6.1 RBC 5.24 Hgb 13.7 Hct 41.9 MCV 79.9 L MCH 26.2 MCHC 32.8 RDW 15.1 Plt Count 206 MPV 9.1 Sodium 140 Potassium 5.0 Chloride 107 Carbon Dioxide 29 Anion Gap 5 L BUN 12.0 Creatinine 0.8 Est GFR (CKD-EPI)AfAm 140.90 Est GFR (CKD-EPI)NonAf 121.57 Random Glucose 87 Calcium 9.1 Total Bilirubin 0.5 AST 19 ALT 28 Alkaline Phosphatase 58 Total Protein 6.2 L Albumin 3.3 L RPR Titer Nonreactive Hep C Ab Diagnostic HIV 1&2 Antibody Screen Negative HIV P24 Antigen Negative 08/04/19 08:00 WBC RBC Hgb Hct MCV MCH MCHC RDW Plt Count MPV Sodium Potassium Chloride Carbon Dioxide Anion Gap BUN Creatinine Est GFR (CKD-EPI)AfAm Est GFR (CKD-EPI)NonAf Random Glucose Calcium Total Bilirubin AST ALT Alkaline Phosphatase Total Protein Albumin RPR Titer Hep C Ab Diagnostic <0.1 HIV 1&2 Antibody Screen HIV P24 Antigen labs noted aaox3 ambulating no acute distress Assessment: 08/05/19 10:15 withdrawals Plan: continue detox increase fluids lidocaine patch ordered valium 10mg prn q4hrs
[2019-08-05 13:32] VITALS: BP 113/55; PULSE 110; TEMP 97.6
--- NOTE | 2019-08-05 17:07 | DS ---
[facility] Detox Discharge Summary Admission Date: 08/03/19 Discharge Date: 08/05/19 - History Present History: Opioid Dependence Pertinent Past History: Pt was admitted 2 days ago. says he needs to leave. Gets Suboxone from PCP. States will see his PCP and restart Suboxone - Physical Exam Results Vital Signs: Vital Signs Temperature 97.6 F 08/05/19 13:31 Pulse Rate 110 H 08/05/19 13:31 Respiratory Rate 18 08/05/19 13:31 Blood Pressure 113/55 L 08/05/19 13:31 O2 Sat by Pulse Oximetry (%) 100 08/04/19 15:09 - Treatment Hospital Course: Detox Protocol Followed - Medication Discharge Medications: Ambulatory Orders traZODone HCL [Desyrel -] 200 mg PO HS 01/30/19 Escitalopram Oxalate [Lexapro -] 20 mg PO DAILY 08/03/19 - AMA Did Patient Leave Against Medical Advice: Yes
[2019-08-05] MEDS ORDERED: traZODone HCL 100 MG TABLET (FP) PO SCH (22:00)
[2019-08-05] MEDS ORDERED: LIDOCAINE PATCH REMOVAL MC SCH (22:00)
[2019-08-06] MEDS ORDERED: LIDOCAINE 5% TOPICAL PATCH TP SCH (10:00)
[2019-08-06] MEDS ORDERED: METHADONE (DETOX) 10 MG, METHADONE (DETOX) 5 MG PO ONE (10:00)
[2019-08-07] MEDS ORDERED: METHADONE HCL 10 MG TABLET (FOR DETOX USE ONLY) PO ONE (10:00)
[2019-08-08] MEDS ORDERED: METHADONE HCL 5 MG TABLET (FOR DETOX USE ONLY) PO ONE (06:00)
== END 2019-08-05 17:25 | disposition left against medical advice (07) | DRG 770 ==
LOC: YASAS 15:04 → Y6N 20:22
PROVIDERS: ADMIT Allergy & Immunology; ATTEND Allergy & Immunology
PROC: HZ2ZZZZ Detoxification Services for Substance Abuse Treatment (ICD-10-PCS; principal; 2019-08-03)
DX: F11.23 Opioid dependence with withdrawal (principal); F13.230 Sedative, hypnotic or anxiolytic dependence with withdrawal, uncomplicated; F17.210 Nicotine dependence, cigarettes, uncomplicated; F19.282 Other psychoactive substance dependence with psychoactive substance-induced sleep disorder; F19.24 Other psychoactive substance dependence with psychoactive substance-induced mood disorder; F31.9 Bipolar disorder, unspecified; I10 Essential (primary) hypertension; J45.909 Unspecified asthma, uncomplicated; R56.9 Unspecified convulsions; Z91.5 Personal history of self-harm
CPT/HCPCS: 36415; 80053; 85027; 86593; 86803; 87389; 94640; J0735

== ENCOUNTER 2021-05-26 16:22 | Inpatient (IN) | payer OTHER ==
[2021-05-26 18:18] VITALS: BMI 30.2
[2021-05-26] MEDS ORDERED: MAGNESIUM HYDROX 2400MG/30ML ORAL SUSPENSION 30 ML CUP PO PRN (19:07)
[2021-05-26] MEDS ORDERED: MAG HYDROX/AL HYDROX/SIMETH 30 ML UNIT-DOSE CUP PO PRN (19:07)
[2021-05-26] MEDS ORDERED: IBUPROFEN 400 MG TABLET (FP) PO PRN (19:07)
[2021-05-26] MEDS ORDERED: ONDANSETRON *ODT* 4 MG TABLET SL PRN (19:07)
[2021-05-26] MEDS ORDERED: NICOTINE POLACRILEX 2 MG GUM BUC PRN (19:07)
[2021-05-26] MEDS ORDERED: ACETAMINOPHEN 325 MG TABLET (FP) PO PRN ×2 (19:07)
[2021-05-26] MEDS ORDERED: BISMUTH SUBSALICYLATE 524 MG/30 ML PO PRN (19:07)
[2021-05-26] MEDS ORDERED: MENTHOL/PHENOL 1 EACH UD MM PRN (19:07)
[2021-05-26] MEDS ORDERED: MAGNESIUM CITRATE 300 ML BOTTLE PO PRN (19:07)
[2021-05-26] MEDS ORDERED: cloNIDine HCL 0.1 MG TABLET PO PRN (19:11)
[2021-05-26] MEDS ORDERED: methaDONE HCL 10 MG TABLET (FOR DETOX USE ONLY) PO ONE (21:00)
[2021-05-26] MEDS: THIAMINE HCL 100 MG TABLET (FP) PO SCH (21:54)
[2021-05-26] MEDS ORDERED: MELATONIN 5 MG TABLETS PO SCH (22:00)
[2021-05-27] MEDS ORDERED: methaDONE HCL 10 MG TABLET (FOR DETOX USE ONLY) ONE (09:10)
[2021-05-27] MEDS: ESCITALOPRAM OXALATE 20 MG TABLET PO SCH (11:04)
[2021-05-27] MEDS: NICOTINE 14 MG/24 HOURS TOPICAL PATCH TD SCH (11:06)
[2021-05-27] MEDS: PRENATAL VITAMINS W/ FOLIC ACID TABLET (FP) PO SCH (11:11)
[2021-05-27 14:31] LABS: CALCIUM 8.8 mg/dL (8.5-10.1)
[2021-05-27 14:32] LABS: ALBUMIN 3.2 g/dl (3.4-5.0); BLOOD UREA NITROGEN 12.6 mg/dL (7-18)
[2021-05-27 14:35] LABS: CREATININE 0.7 mg/dL (0.55-1.3)
[2021-05-27 14:37] LABS: BILIRUBIN,TOTAL 0.5 mg/dL (0.2-1); TOT PROT 6.6 g/dl (6.4-8.2)
[2021-05-27 14:42] LABS: HEMATOCRIT 42.3 % (35.4-49); HEMOGLOBIN 13.9 GM/dL (11.7-16.9); MCH 26.2 pg (25.7-33.7); MEAN CELL VOLUME 79.6 fl (80-96); MEAN PLT VOLUME 9.1 fl (7.5-11.1); PLATELET COUNT 258 10^3/uL (134-434); RBC 5.31 M/mm3 (4.00-5.60); RDW 14.6 % (11.9-15.9); WHITE BLOOD COUNT 5.7 K/mm3 (4.0-10.0)
[2021-05-27 15:33] LABS: HIV INTERPRETATION NEGATIVE (NEGATIVE)
[2021-05-27] MEDS: THIAMINE HCL 100 MG TABLET (FP) PO SCH (23:14)
[2021-05-27] MEDS: traZODone HCL 100 MG TABLET (FP) PO SCH (23:17)
[2021-05-28] MEDS ORDERED: methaDONE HCL 10 MG TABLET (FOR DETOX USE ONLY) PO ONE (10:00)
[2021-05-28] MEDS: NICOTINE 14 MG/24 HOURS TOPICAL PATCH TD SCH (11:08)
[2021-05-28] MEDS: PRENATAL VITAMINS W/ FOLIC ACID TABLET (FP) PO SCH (11:09)
[2021-05-28] MEDS: ESCITALOPRAM OXALATE 20 MG TABLET PO SCH (11:10)
[2021-05-28] MEDS: traZODone HCL 100 MG TABLET (FP) PO SCH (22:33)
[2021-05-28] MEDS: THIAMINE HCL 100 MG TABLET (FP) PO SCH (22:33)
[2021-05-29] MEDS ORDERED: methaDONE HCL 10 MG TABLET (FOR DETOX USE ONLY) ONE (09:47)
[2021-05-29] MEDS: ESCITALOPRAM OXALATE 20 MG TABLET PO SCH (10:39)
[2021-05-29] MEDS: METHOCARBAMOL 500 MG TABLET PO PRN ×2 (10:40→22:21)
[2021-05-29] MEDS: PRENATAL VITAMINS W/ FOLIC ACID TABLET (FP) PO SCH (10:40)
[2021-05-29] MEDS: NICOTINE 14 MG/24 HOURS TOPICAL PATCH TD SCH (10:41)
[2021-05-29] MEDS: traZODone HCL 100 MG TABLET (FP) PO SCH (22:21)
[2021-05-29] MEDS: THIAMINE HCL 100 MG TABLET (FP) PO SCH (22:21)
[2021-05-30] MEDS ORDERED: methaDONE HCL 10 MG TABLET (FOR DETOX USE ONLY) PO ONE (10:00)
[2021-05-30] MEDS: METHOCARBAMOL 500 MG TABLET PO PRN (10:09)
[2021-05-30] MEDS: ESCITALOPRAM OXALATE 20 MG TABLET PO SCH (10:09)
[2021-05-30] MEDS: PRENATAL VITAMINS W/ FOLIC ACID TABLET (FP) PO SCH (10:10)
[2021-05-30] MEDS: NICOTINE 14 MG/24 HOURS TOPICAL PATCH TD SCH (10:10)
[2021-05-30 12:59] VITALS: BP 120/71; PULSE 69; TEMP 97.1
== END 2021-05-30 14:28 | disposition home or self-care (01) | DRG 773 ==
LOC: YASAS 16:22 → Y3N 20:36
PROVIDERS: ADMIT Allergy & Immunology; ATTEND Allergy & Immunology
PROC: HZ2ZZZZ Detoxification Services for Substance Abuse Treatment (ICD-10-PCS; principal; 2021-05-26)
DX: F11.23 Opioid dependence with withdrawal (principal); F10.230 Alcohol dependence with withdrawal, uncomplicated; F14.20 Cocaine dependence, uncomplicated; F17.210 Nicotine dependence, cigarettes, uncomplicated; F31.9 Bipolar disorder, unspecified; F41.9 Anxiety disorder, unspecified; F19.24 Other psychoactive substance dependence with psychoactive substance-induced mood disorder; E88.09 Other disorders of plasma-protein metabolism, not elsewhere classified; I10 Essential (primary) hypertension; G40.89 Other seizures; R00.1 Bradycardia, unspecified; Z87.09 Personal history of other diseases of the respiratory system
CPT/HCPCS: 36415; 80053; 85027; 86780; 87389; 93005; 93010; C9803; J0735; U0003; U0005

== ENCOUNTER 2021-06-01 14:47 | Inpatient (IN) | payer OTHER ==
[2021-06-01] MEDS ORDERED: LOPERAMIDE HCL 2 MG CAPSULE PO PRN (21:52)
[2021-06-01] MEDS ORDERED: MAGNESIUM CITRATE 300 ML BOTTLE PO PRN (21:52)
[2021-06-01] MEDS ORDERED: P-EPHED 60MG/TRIPROLIDI 2.5MG TABLET PO PRN (21:52)
[2021-06-01] MEDS ORDERED: ACETAMINOPHEN 325 MG TABLET (FP) PO PRN (21:52)
[2021-06-01] MEDS ORDERED: IBUPROFEN 400 MG TABLET (FP) PO PRN (21:52)
[2021-06-01] MEDS ORDERED: guaiFENesin 200 MG/10 ML 10 ML UNIT-DOSE CUPS PO PRN (21:52)
[2021-06-01] MEDS ORDERED: MAG HYDROX/AL HYDROX/SIMETH 30 ML UNIT-DOSE CUP PO PRN (21:52)
[2021-06-01] MEDS ORDERED: MAGNESIUM HYDROX 2400MG/30ML ORAL SUSPENSION 30 ML CUP PO PRN (21:52)
[2021-06-02] MEDS: MELATONIN 5 MG TABLETS PO SCH ×2 (00:39→21:20)
[2021-06-02] MEDS: THIAMINE HCL 100 MG TABLET (FP) PO SCH ×2 (00:39→21:20)
[2021-06-02 00:44] VITALS: BMI 28.1
[2021-06-02 09:40] VITALS: BP 110/56
[2021-06-02 10:06] LABS: PH,URINE 7.5 (5.0-8.0); URINE APPEARANCE Clear; URINE BILIRUBIN Negative (NEGATIVE); URINE COLOR Yellow; URINE GLUCOSE (UA) Negative (NEGATIVE); URINE KETONE Negative (NEGATIVE); URINE LEUK ESTERASE Negative (NEGATIVE); URINE NITRITE Negative (NEGATIVE); URINE PROTEIN Negative (NEGATIVE); URINE UROBILINOGEN 0.2 mg/dL (0.2-1.0)
[2021-06-02] MEDS: PRENATAL VITAMINS W/ FOLIC ACID TABLET (FP) PO SCH (10:06)
[2021-06-02] MEDS: hydrOXYzine PAMOATE 25 MG CAPSULE (FP) PO PRN (21:20)
[2021-06-03 07:30] VITALS: PULSE 48; TEMP 97.2
[2021-06-03] MEDS: PRENATAL VITAMINS W/ FOLIC ACID TABLET (FP) PO SCH (09:13)
[2021-06-03] MEDS: hydrOXYzine PAMOATE 25 MG CAPSULE (FP) PO PRN (21:18)
[2021-06-03] MEDS: THIAMINE HCL 100 MG TABLET (FP) PO SCH (21:18)
[2021-06-03] MEDS: MELATONIN 5 MG TABLETS PO SCH (21:18)
[2021-06-04] MEDS: PRENATAL VITAMINS W/ FOLIC ACID TABLET (FP) PO SCH (09:15)
[2021-06-04] MEDS: hydrOXYzine PAMOATE 25 MG CAPSULE (FP) PO PRN (10:20)
== END 2021-06-04 11:42 | disposition home or self-care (01) | DRG 772 ==
LOC: YASAS 14:47 → Y3E 19:08
PROVIDERS: ADMIT Allergy & Immunology; ATTEND Allergy & Immunology
PROC: HZ42ZZZ Group Counseling for Substance Abuse Treatment, Cognitive-Behavioral (ICD-10-PCS; principal; 2021-06-01)
DX: F11.20 Opioid dependence, uncomplicated (principal); F17.210 Nicotine dependence, cigarettes, uncomplicated; F31.9 Bipolar disorder, unspecified; F41.1 Generalized anxiety disorder; I10 Essential (primary) hypertension; J45.909 Unspecified asthma, uncomplicated; G40.509 Epileptic seizures related to external causes, not intractable, without status epilepticus; G47.00 Insomnia, unspecified
CPT/HCPCS: 81003; C9803; U0003; U0005

== ENCOUNTER 2024-03-02 15:49 | Inpatient (IN) | payer OTHER ==
[2024-03-02 16:34] VITALS: BMI 29.3
[2024-03-02] MEDS ORDERED: hydrOXYzine PAMOATE 25 MG CAPSULE (FP) PO PRN (20:44)
[2024-03-02] MEDS ORDERED: IBUPROFEN 600 MG TABLET (FP) PO PRN (20:44)
[2024-03-02] MEDS ORDERED: guaiFENesin 600 MG TABLET.ER (FP) PO PRN (20:44)
[2024-03-02] MEDS ORDERED: ONDANSETRON *ODT* 4 MG TABLET SL PRN (20:44)
[2024-03-02] MEDS ORDERED: BENZONATATE 200 MG CAPSULE PO PRN (20:44)
[2024-03-02] MEDS ORDERED: BENZOCAINE/MENTHOL (CHLORASEPTIC ) LOZENGE MM PRN (20:44)
[2024-03-02] MEDS ORDERED: IBUPROFEN 400 MG TABLET (FP) PO PRN (20:44)
[2024-03-02] MEDS ORDERED: BISMUTH SUBSALICYLATE 524 MG/30 ML PO PRN (20:44)
[2024-03-02] MEDS ORDERED: MAG HYDROX/AL HYDROX/SIMETH 30 ML UNIT-DOSE CUP PO PRN (20:44)
[2024-03-02] MEDS ORDERED: LOPERAMIDE HCL 2 MG CAPSULE PO PRN (20:44)
[2024-03-02] MEDS ORDERED: MAGNESIUM HYDROX 2400MG/30ML ORAL SUSPENSION 30 ML CUP PO PRN (20:44)
[2024-03-02] MEDS ORDERED: NALOXONE HCL 0.4 MG/ML VIAL IM PRN (20:44)
[2024-03-02] MEDS ORDERED: ACETAMINOPHEN 325 MG TABLET (FP) PO PRN (20:44)
[2024-03-02] MEDS ORDERED: POLYETHYLENE GLYCOL (HEALTHYLAX) 3350 17 GM PACKET PO PRN (20:44)
[2024-03-02] MEDS ORDERED: DICYCLOMINE HCL 10 MG CAPSULE PO PRN (20:44)
[2024-03-02] MEDS ORDERED: NICOTINE POLACRILEX 4 MG GUM BUC PRN (20:44)
[2024-03-02] MEDS ORDERED: NALOXONE (NARCAN) HCL 4 MG/0.1 ML SPRAY NS PRN (20:44)
[2024-03-02] MEDS: BACITRACIN 0.9 GM PACKET TP SCH (21:45)
[2024-03-02] MEDS: methaDONE HCL 10 MG TABLET PO SCH ×2 (21:48→22:34)
[2024-03-02] MEDS: THIAMINE 100 MG TABLET PO SCH (22:32)
[2024-03-02] MEDS: SULFAMETHOXAZOLE/TRIMETHOPRIM 800MG/160MG D.S. TABLET PO SCH (22:34)
[2024-03-02] MEDS: METHOCARBAMOL 500 MG TABLET PO PRN (22:34)
[2024-03-02] MEDS: MELATONIN 5 MG TABLETS PO SCH (22:35)
[2024-03-03] MEDS ORDERED: LORazepam 1 MG TABLET PO PRN (08:45)
[2024-03-03] MEDS ORDERED: ALBUTEROL SO4 HFA INHALER IH PRN (08:47)
[2024-03-03] MEDS: PRENATAL VITAMINS W/ FOLIC ACID TABLET (FP) PO SCH (09:39)
[2024-03-03] MEDS: NICOTINE 14 MG/24 HOURS TOPICAL PATCH TD SCH (09:39)
[2024-03-03] MEDS: LORazepam 2 MG TABLET PO SCH (10:43)
[2024-03-04 09:37] VITALS: BP 102/60; PULSE 85; RESP 18; TEMP 96.9
[2024-03-05] MEDS ORDERED: LORazepam 1 MG TABLET PO SCH (05:00)
[2024-03-06] MEDS ORDERED: LORazepam 0.5 MG TABLET PO PRN
[2024-03-06] MEDS ORDERED: LORazepam 0.5 MG TABLET PO SCH (05:00)
[2024-03-07] MEDS ORDERED: LORazepam 0.5 MG TABLET PO ONE (05:00)
== END 2024-03-04 09:26 | disposition left against medical advice (07) | DRG 770 ==
LOC: YASAS 15:49 → Y6N 20:59
PROVIDERS: ADMIT Allergy & Immunology; ATTEND Surgery
PROC: HZ42ZZZ Group Counseling for Substance Abuse Treatment, Cognitive-Behavioral (ICD-10-PCS; principal; 2024-03-02)
DX: F13.230 Sedative, hypnotic or anxiolytic dependence with withdrawal, uncomplicated (principal); F14.20 Cocaine dependence, uncomplicated; F11.20 Opioid dependence, uncomplicated; F17.210 Nicotine dependence, cigarettes, uncomplicated; F31.81 Bipolar II disorder; F19.282 Other psychoactive substance dependence with psychoactive substance-induced sleep disorder; J45.20 Mild intermittent asthma, uncomplicated; L03.119 Cellulitis of unspecified part of limb; M54.50 Low back pain, unspecified; G89.29 Other chronic pain
CPT/HCPCS: 80305; 93005; 93010

== ENCOUNTER 2024-11-10 15:37 | Inpatient (IN) | payer OTHER ==
[2024-11-10 17:33] VITALS: BMI 24.2
[2024-11-10] MEDS ORDERED: DICYCLOMINE HCL 10 MG CAPSULE PO PRN (18:30)
[2024-11-10] MEDS ORDERED: MAGNESIUM HYDROX 2400MG/30ML ORAL SUSPENSION 30 ML CUP PO PRN (18:30)
[2024-11-10] MEDS ORDERED: ACETAMINOPHEN 325 MG TABLET (FP) PO PRN (18:30)
[2024-11-10] MEDS ORDERED: NALOXONE (NARCAN) HCL 4 MG/0.1 ML SPRAY NS PRN (18:30)
[2024-11-10] MEDS ORDERED: MAG HYDROX/AL HYDROX/SIMETH 30 ML UNIT-DOSE CUP PO PRN (18:30)
[2024-11-10] MEDS ORDERED: guaiFENesin 600 MG TABLET.ER (FP) PO PRN (18:30)
[2024-11-10] MEDS ORDERED: LOPERAMIDE HCL 2 MG CAPSULE PO PRN (18:30)
[2024-11-10] MEDS ORDERED: IBUPROFEN 400 MG TABLET (FP) PO PRN (18:30)
[2024-11-10] MEDS ORDERED: ONDANSETRON *ODT* 4 MG TABLET SL PRN (18:30)
[2024-11-10] MEDS ORDERED: POLYETHYLENE GLYCOL (HEALTHYLAX) 3350 17 GM PACKET PO PRN (18:30)
[2024-11-10] MEDS ORDERED: BENZONATATE 200 MG CAPSULE PO PRN (18:30)
[2024-11-10] MEDS ORDERED: BENZOCAINE/MENTHOL (CHLORASEPTIC ) LOZENGE MM PRN (18:30)
[2024-11-10] MEDS ORDERED: IBUPROFEN 600 MG TABLET (FP) PO PRN (18:30)
[2024-11-10] MEDS ORDERED: BISMUTH SUBSALICYLATE 524 MG/30 ML PO PRN (18:30)
[2024-11-10] MEDS ORDERED: ALBUTEROL SO4 HFA INHALER IH PRN (21:35)
[2024-11-10] MEDS: METHOCARBAMOL 500 MG TABLET PO PRN (22:23)
[2024-11-10] MEDS: THIAMINE 100 MG TABLET PO SCH (22:23)
[2024-11-10] MEDS: BACITRACIN 0.9 GM PACKET TP SCH (22:23)
[2024-11-10] MEDS: MELATONIN 5 MG TABLETS PO SCH (22:23)
[2024-11-11] MEDS ORDERED: diazePAM 5 MG TABLET PO PRN (09:20)
[2024-11-11] MEDS ORDERED: methaDONE HCL 10 MG TABLET (FOR DETOX USE ONLY) PO PRN (09:20)
[2024-11-11] MEDS ORDERED: cloNIDine HCL 0.1 MG TABLET PO PRN (09:20)
[2024-11-11] MEDS: PRENATAL VITAMINS W/ FOLIC ACID TABLET (FP) PO SCH (10:37)
[2024-11-11] MEDS: diazePAM 5 MG TABLET PO SCH (10:37)
[2024-11-11] MEDS: methaDONE HCL 10 MG TABLET (FOR DETOX USE ONLY) PO ONE ×2 (11:08→11:40)
[2024-11-11] MEDS: hydrOXYzine PAMOATE 25 MG CAPSULE (FP) PO PRN (11:43)
[2024-11-11 13:28] VITALS: BP 165/81; PULSE 63; RESP 16; TEMP 97.8
[2024-11-11] MEDS ORDERED: traZODone HCL 50 MG TABLET (FP) PO PRN (22:00)
[2024-11-12] MEDS ORDERED: diazePAM 5 MG TABLET PO SCH (06:00)
[2024-11-12] MEDS ORDERED: methaDONE HCL 10 MG TABLET (FOR DETOX USE ONLY) PO ONE (10:00)
[2024-11-13] MEDS ORDERED: diazePAM 5 MG TABLET PO SCH (06:00)
[2024-11-13] MEDS ORDERED: methaDONE HCL 10 MG TABLET (FOR DETOX USE ONLY) PO ONE (10:00)
[2024-11-14] MEDS ORDERED: diazePAM 5 MG TABLET PO ONE (06:00)
[2024-11-14] MEDS ORDERED: methaDONE HCL 10 MG TABLET (FOR DETOX USE ONLY) PO ONE (10:00)
[2024-11-15] MEDS ORDERED: methaDONE HCL 10 MG TABLET (FOR DETOX USE ONLY) PO ONE (10:00)
== END 2024-11-11 14:31 | disposition home or self-care (01) | DRG 773 ==
LOC: YASAS 15:37 → Y6N 20:02
PROVIDERS: ADMIT Allergy & Immunology; ATTEND Allergy & Immunology
PROC: HZ2ZZZZ Detoxification Services for Substance Abuse Treatment (ICD-10-PCS; principal; 2024-11-10)
DX: F11.23 Opioid dependence with withdrawal (principal); F13.20 Sedative, hypnotic or anxiolytic dependence, uncomplicated; F14.20 Cocaine dependence, uncomplicated; F17.210 Nicotine dependence, cigarettes, uncomplicated; F19.282 Other psychoactive substance dependence with psychoactive substance-induced sleep disorder; F32.A Depression, unspecified; J45.20 Mild intermittent asthma, uncomplicated; Z86.59 Personal history of other mental and behavioral disorders
CPT/HCPCS: 80305; 80307; 93005; 93010

== ENCOUNTER 2025-01-22 15:37 | Inpatient (IN) | payer OTHER ==
[2025-01-22 16:09] VITALS: BMI 27.1
[2025-01-22] MEDS ORDERED: MAGNESIUM HYDROX 2400MG/30ML ORAL SUSPENSION 30 ML CUP PO PRN (17:16)
[2025-01-22] MEDS ORDERED: IBUPROFEN 400 MG TABLET (FP) PO PRN (17:16)
[2025-01-22] MEDS ORDERED: NICOTINE POLACRILEX 2 MG GUM BUC PRN (17:16)
[2025-01-22] MEDS ORDERED: LOPERAMIDE HCL 2 MG CAPSULE PO PRN (17:16)
[2025-01-22] MEDS ORDERED: MAG HYDROX/AL HYDROX/SIMETH 30 ML UNIT-DOSE CUP PO PRN (17:16)
[2025-01-22] MEDS ORDERED: NICOTINE POLACRILEX 2 MG LOZENGE BC PRN (17:16)
[2025-01-22] MEDS ORDERED: guaiFENesin 600 MG TABLET.ER (FP) PO PRN (17:16)
[2025-01-22] MEDS ORDERED: ACETAMINOPHEN 325 MG TABLET (FP) PO PRN (17:16)
[2025-01-22] MEDS ORDERED: BENZONATATE 200 MG CAPSULE PO PRN (17:16)
[2025-01-22] MEDS ORDERED: NALOXONE (NARCAN) HCL 4 MG/0.1 ML SPRAY NS PRN (17:16)
[2025-01-22] MEDS ORDERED: BENZOCAINE/MENTHOL (CHLORASEPTIC ) LOZENGE MM PRN (17:16)
[2025-01-22] MEDS ORDERED: POLYETHYLENE GLYCOL (HEALTHYLAX) 3350 17 GM PACKET PO PRN (17:16)
[2025-01-22] MEDS ORDERED: METHOCARBAMOL 500 MG TABLET PO PRN (17:16)
[2025-01-22] MEDS ORDERED: DICYCLOMINE HCL 10 MG CAPSULE PO PRN (17:16)
[2025-01-22] MEDS ORDERED: P-EPHED 60MG/TRIPROLIDI 2.5MG TABLET PO PRN (17:16)
[2025-01-22] MEDS ORDERED: BISMUTH SUBSALICYLATE 524 MG/30 ML PO PRN (17:16)
[2025-01-22] MEDS ORDERED: methaDONE HCL 10 MG TABLET (FOR DETOX USE ONLY) PO PRN (17:19)
[2025-01-22] MEDS ORDERED: levETIRAcetam 500 MG TABLET (FP) PO ONE (17:55)
[2025-01-22] MEDS: levETIRAcetam 500 MG TABLET (FP) PO ONE (17:58)
[2025-01-22] MEDS: ONDANSETRON *ODT* 4 MG TABLET SL PRN (20:29)
[2025-01-22] MEDS: TRIMETHOBENZAMIDE HCL 200MG/2ML INJ IM PRN (22:06)
[2025-01-22] MEDS: MELATONIN 5 MG TABLETS PO SCH (22:35)
[2025-01-22] MEDS: THIAMINE 100 MG TABLET PO SCH (22:35)
[2025-01-22] MEDS: levETIRAcetam 500 MG TABLET (FP) PO SCH (22:35)
[2025-01-22] MEDS: IBUPROFEN 600 MG TABLET (FP) PO PRN (22:37)
[2025-01-22] MEDS: diazePAM 5 MG TABLET PO PRN (22:38)
[2025-01-23 04:05] VITALS: BP 130/96; PULSE 112; RESP 20; TEMP 96.9
[2025-01-23] MEDS: methaDONE HCL 10 MG TABLET (FOR DETOX USE ONLY) PO ONE (04:34)
[2025-01-23] MEDS: cloNIDine HCL 0.1 MG TABLET PO PRN (04:35)
[2025-01-23] MEDS: diazePAM 5 MG TABLET PO SCH (05:34)
[2025-01-23] MEDS: TRIMETHOBENZAMIDE HCL 200MG/2ML INJ IM ONE (05:37)
[2025-01-23] MEDS ORDERED: PRENATAL VITAMINS W/ FOLIC ACID TABLET (FP) PO SCH (10:00)
[2025-01-23] MEDS ORDERED: methaDONE HCL 10 MG TABLET (FOR DETOX USE ONLY) PO ONE (10:00)
[2025-01-24] MEDS ORDERED: diazePAM 5 MG TABLET PO SCH (06:00)
[2025-01-25] MEDS ORDERED: diazePAM 5 MG TABLET PO SCH (06:00)
[2025-01-25] MEDS ORDERED: methaDONE HCL 10 MG TABLET (FOR DETOX USE ONLY) PO ONE (10:00)
[2025-01-26] MEDS ORDERED: diazePAM 5 MG TABLET PO ONE (06:00)
[2025-01-27] MEDS ORDERED: methaDONE HCL 10 MG TABLET (FOR DETOX USE ONLY) PO ONE (10:00)
== END 2025-01-23 06:09 | disposition left against medical advice (07) | DRG 770 ==
LOC: YASAS 15:37 → Y6N 17:41
PROVIDERS: ADMIT Allergy & Immunology; ATTEND Allergy & Immunology
PROC: HZ2ZZZZ Detoxification Services for Substance Abuse Treatment (ICD-10-PCS; principal; 2025-01-22)
DX: F11.23 Opioid dependence with withdrawal (principal); F13.20 Sedative, hypnotic or anxiolytic dependence, uncomplicated; F19.282 Other psychoactive substance dependence with psychoactive substance-induced sleep disorder; J45.20 Mild intermittent asthma, uncomplicated; Z87.891 Personal history of nicotine dependence; Z86.59 Personal history of other mental and behavioral disorders
CPT/HCPCS: 80305; 80307; 93005; 93010; Q0162

== ENCOUNTER 2025-02-18 12:42 | Inpatient (IN) | payer OTHER ==
[2025-02-18 13:11] VITALS: BMI 25.4
[2025-02-18] MEDS ORDERED: MAG HYDROX/AL HYDROX/SIMETH 30 ML UNIT-DOSE CUP PO PRN (13:16)
[2025-02-18] MEDS ORDERED: DICYCLOMINE HCL 10 MG CAPSULE PO PRN (13:16)
[2025-02-18] MEDS ORDERED: BENZONATATE 200 MG CAPSULE PO PRN (13:16)
[2025-02-18] MEDS ORDERED: POLYETHYLENE GLYCOL (HEALTHYLAX) 3350 17 GM PACKET PO PRN (13:16)
[2025-02-18] MEDS ORDERED: BENZOCAINE/MENTHOL (CHLORASEPTIC ) LOZENGE MM PRN (13:16)
[2025-02-18] MEDS ORDERED: NALOXONE (NARCAN) HCL 4 MG/0.1 ML SPRAY NS PRN (13:16)
[2025-02-18] MEDS ORDERED: BISMUTH SUBSALICYLATE 524 MG/30 ML PO PRN (13:16)
[2025-02-18] MEDS ORDERED: IBUPROFEN 600 MG TABLET (FP) PO PRN (13:16)
[2025-02-18] MEDS ORDERED: IBUPROFEN 400 MG TABLET (FP) PO PRN (13:16)
[2025-02-18] MEDS ORDERED: METHOCARBAMOL 500 MG TABLET PO PRN (13:16)
[2025-02-18] MEDS ORDERED: MAGNESIUM HYDROX 2400MG/30ML ORAL SUSPENSION 30 ML CUP PO PRN (13:16)
[2025-02-18] MEDS ORDERED: ACETAMINOPHEN 325 MG TABLET (FP) PO PRN (13:16)
[2025-02-18] MEDS ORDERED: hydrOXYzine PAMOATE 25 MG CAPSULE (FP) PO PRN (13:16)
[2025-02-18] MEDS ORDERED: LOPERAMIDE HCL 2 MG CAPSULE PO PRN (13:16)
[2025-02-18] MEDS ORDERED: guaiFENesin 600 MG TABLET.ER (FP) PO PRN (13:16)
[2025-02-18] MEDS ORDERED: ALBUTEROL SO4 HFA INHALER IH PRN (13:18)
[2025-02-18] MEDS ORDERED: diazePAM 5 MG TABLET PO PRN (13:27)
[2025-02-18] MEDS ORDERED: PRENATAL VITAMINS W/ FOLIC ACID TABLET (FP) PO ONE (13:49)
[2025-02-18] MEDS ORDERED: cloNIDine HCL 0.1 MG TABLET ONE (13:49)
[2025-02-18] MEDS ORDERED: methaDONE HCL 10 MG TABLET (FOR DETOX USE ONLY) ONE (13:49)
[2025-02-18] MEDS: ONDANSETRON *ODT* 4 MG TABLET SL PRN (14:05)
[2025-02-18] MEDS ORDERED: ONDANSETRON *ODT* 4 MG TABLET ONE (14:05)
[2025-02-18] MEDS: PRENATAL VITAMINS W/ FOLIC ACID TABLET (FP) PO SCH (14:08)
[2025-02-18] MEDS: cloNIDine HCL 0.1 MG TABLET PO SCH (14:49)
[2025-02-18] MEDS: methaDONE HCL 10 MG TABLET PO ONE (14:50)
[2025-02-18] MEDS ORDERED: methaDONE HCL 10 MG TABLET (FOR DETOX USE ONLY) PO PRN (16:15)
[2025-02-18 16:41] VITALS: RESP 16
[2025-02-18] MEDS: diazePAM 5 MG TABLET PO SCH (17:27)
[2025-02-18] MEDS: TRIMETHOBENZAMIDE HCL 200MG/2ML INJ IM ONE (18:54)
[2025-02-18 20:32] VITALS: BP 172/76; PULSE 78; TEMP 97.1
[2025-02-18] MEDS ORDERED: MELATONIN 5 MG TABLETS PO SCH (22:00)
[2025-02-18] MEDS ORDERED: traZODone HCL 50 MG TABLET (FP) PO SCH (22:00)
[2025-02-18] MEDS ORDERED: AMOXICILLIN 500 MG CAPSULE (FP) PO SCH (22:00)
[2025-02-18] MEDS ORDERED: THIAMINE 100 MG TABLET PO SCH (22:00)
[2025-02-19] MEDS ORDERED: methaDONE HCL 10 MG TABLET PO ONE (10:00)
[2025-02-20] MEDS ORDERED: cloNIDine HCL 0.1 MG TABLET PO PRN
[2025-02-20] MEDS ORDERED: diazePAM 5 MG TABLET PO SCH (06:00)
[2025-02-20] MEDS ORDERED: methaDONE HCL 10 MG TABLET PO ONE (10:00)
[2025-02-21] MEDS ORDERED: diazePAM 5 MG TABLET PO SCH (06:00)
[2025-02-21] MEDS ORDERED: methaDONE HCL 40 MG DISPERSABLE TABLET PO ONE (10:00)
[2025-02-22] MEDS ORDERED: diazePAM 5 MG TABLET PO ONE (06:00)
[2025-02-22] MEDS ORDERED: methaDONE 40 MG, methaDONE 10 MG PO ONE (10:00)
[2025-02-23] MEDS ORDERED: methaDONE 40 MG, methaDONE 20 MG PO ONE (10:00)
== END 2025-02-18 21:07 | disposition left against medical advice (07) | DRG 770 ==
LOC: YASAS 12:42 → Y3N 14:12
PROVIDERS: ADMIT Allergy & Immunology; ATTEND Allergy & Immunology
PROC: HZ2ZZZZ Detoxification Services for Substance Abuse Treatment (ICD-10-PCS; principal; 2025-02-18)
DX: F11.20 Opioid dependence, uncomplicated (principal); F14.20 Cocaine dependence, uncomplicated; F13.20 Sedative, hypnotic or anxiolytic dependence, uncomplicated; F41.9 Anxiety disorder, unspecified; F90.9 Attention-deficit hyperactivity disorder, unspecified type; G47.00 Insomnia, unspecified; J45.20 Mild intermittent asthma, uncomplicated; Z87.891 Personal history of nicotine dependence; Z91.199 Patient's noncompliance with other medical treatment and regimen due to unspecified reason
CPT/HCPCS: 93005; 93010; Q0162